=== PATIENT | female | born 1985 | race Caucasian/White ===

== ENCOUNTER → 2021-05-13 12:56 | Outpatient (BNVA) | payer OTHER, SELFPAY | PROVIDERS: PCP Family Medicine; Visit Provider Surgery Vascular Surgery ==

== ENCOUNTER 2021-08-14 08:59 | Outpatient (REF) | payer OTHER, SELFPAY ==
--- NOTE | ~2021-08-14 | XR_ITS ---
EXAMINATION: XR CERVICAL SPINE CLINICAL INFORMATION: Cervicalgia COMPARISON: None TECHNIQUE: 3 views of the cervical spine were obtained. FINDINGS: The craniocervical junction is normal. The dens and atlantodental articulation are intact. The cervical vertebra have normal height. Alignment is normal. No fracture, subluxation or prevertebral soft tissue swelling. The spinal curvature is normal. Minimal disc space narrowing at C5-C6. Otherwise, the disc spaces are normal. The visualized lung apices are normal. XR/XR cervical spine 3V IMPRESSION: * No fracture or subluxation. No significant radiographic findings in the cervical spine. * There is likely minimal disc degeneration at the C5-C6 level, as manifest by minimal height loss of the disc space.
== END 2021-08-14 09:00 | disposition home or self-care (01) ==
LOC: HO.LAB 08:59
PROVIDERS: PCP Family Medicine; Visit Provider Physical Medicine & Rehabilitation
DX: M54.2 Cervicalgia (principal)
CPT/HCPCS: 72040

== ENCOUNTER 2023-09-08 11:22 | Outpatient (REF) | payer OTHER, SELFPAY ==
--- NOTE | ~2023-09-08 | MR_ITS ---
EXAMINATION: MR BRAIN WITHOUT AND WITH CONTRAST CLINICAL INFORMATION: Headaches COMPARISON: None TECHNIQUE: Multiplanar multisequence MR imaging of the brain was obtained without and following the administration of 6 mL Gadavist intravenous contrast. FINDINGS: There is no acute infarct on diffusion-weighted imaging. There is no intracranial hemorrhage on iron-sensitive imaging. No extra-axial collection or mass effect/herniation. Normal parenchymal signal characteristics. No hydrocephalus. The ventricles are normal in morphology and size. No abnormal parenchymal or extra-axial enhancement. The major flow voids at the skull base are preserved. The midline structures are normal. The cerebellar tonsils are positioned at the level of the foramen magnum. The craniocervical junction is normal. Marrow signal is within normal limits. The visualized soft tissues are without significant abnormality. No signal abnormality within the paranasal sinuses or within the mastoid air cells. MR/MR head/brain wo/w con IMPRESSION: Unremarkable contrast enhanced MRI of the brain.
[2023-09-08] MEDS: gadobutroL 7.5 ML VIAL IVPUSH (12:59)
== END 2023-09-08 11:23 | disposition home or self-care (01) ==
LOC: HO.MRI 11:22
PROVIDERS: Visit Provider Otolaryngology
DX: R51.9 Headache, unspecified (principal)
CPT/HCPCS: 70553; A9585

== ENCOUNTER 2024-10-11 08:43 | Outpatient (AMB) | payer OTHER, SELFPAY ==
--- NOTE | 2024-10-11 08:43 | MHC.OFFVIS ---
Intake Visit Reasons: Abdominal pain/ IBS Intake Note: Sabiha presents as a telehealth today for abdominal pains and IBS. CC: Chronic bloating in the stomach, she tends to lean towards constipation and she was diagnosed with IBS from [employer]. Student Outreach Coordinator Required: No Allergies cefaclor [From Ceclor] Adverse Reaction (Unknown, Verified 05/13/21 12:58) Unknown HPI Comments Details: 39 y.o F with PMH of chronic migraines, LBP, IBS. Prev established with [facility] [place] but has not been seen by them since 2016. Main concern is if she is due for repeat colonoscopy due to fam hx. Fam hx: Maternal great grandmother and maternal aunt: CRC. No issues with diarrhea, blood in stool. Has IBS-C predominantly. Triggered easily by change in diet and/or routine. Tried fodmap diet but didnt agree with her gut. Takes at least a few weeks before she can regulate her BMs. When she is not having a flare, doesnt have to strain, stools are soft but formed. Doesnt take fiber supplementation but diet has decent amount fiber. [facility] Medical History (Updated 10/11/24 @ 12:37 by Lorna Braxton MD) Depression Osteoarthritis Surgical History (Updated 10/11/24 @ 08:44 by JAZMINE Corea) Hx of colonoscopy History of esophagogastroduodenoscopy (EGD) Family History (Updated 10/11/24 @ 08:44 by JAZMINE Corea) Family/Other Colon cancer Family/Other Colon cancer Social History Patient Tobacco Use Status: Never used Tobacco Review of Systems Const All systems reviewed & are unremarkable except as noted in HPI and below Physical Exam Vital Signs: Video visit: No acute distress No icterus noted No facial asymmetry Speaking in full sentences Telehealth Telehealth Telehealth [facility]: [facility] Location of provider rendering services: practice address Location of patient: address on file Patient Identification confirmed using: Name, : Yes Telehealth method: video Patient verbally consented to treatment: Yes Patient verbally consented to billing insurance company: Yes Patient informed of any privacy concerns related to visit: Yes Minutes spent on Phone/Video with Pt.: 19 Assessment & Plan Assessment & Plan (1) Irritable bowel syndrome with constipation: Code(s): K58.1 - Irritable bowel syndrome with constipation Category: Medical Plan Overall stable at present. Reviewed consistent fiber intake goal 25-30g per day, increasing hydration and utilizing miralax consistently. We also discussed strategies around dietary modification. Next step would be addition of amitiza anam if burden of global sx high. Plan: - Increase fiber intake - ok to supplement as needed - Adequate hydration - Trial of gluten and dairy avoidance - Pt to maintain food and sx diary and review this in 4 months for ? indication of amitiza - No red flags to warrant endoscopic eval at this time Follow up 4 months Coding Level of Care Code Tele New Pt Level 4 (36677) Diagnoses Irritable bowel syndrome with constipation K58.1
--- OUTSIDE RECORDS SUMMARY | 2024-10-11 09:01 | XMS_ITS | Encounter Summary ---
Author Organization [facility] Address [address] [place] [address] Care Team Providers Care Data Modeling Architect Name Role Phone Yanelis Mast MD Primary Care Provider + Encounter Details Date Type Department Care Team (Latest Contact Info) Description 10/09/2024 Travel Social History Tobacco Use Types Packs/Day Years Used Date Smoking Tobacco: Former Cigarettes Smokeless Tobacco: Former PHQ-2 Answer Date Recorded PHQ-2 Total Score 3 10/09/2024 Physical Activity Answer Date Recorded On average, how many days pe r week do you engage in moderate to strenuous exercise (like a brisk walk)? 4 days 10/21/2023 On average, how many minutes do you exercise per day at this level? 40 min 10/21/2023 Sex and Gender Information Value Date Recorded Sex Assigned at Female 07/06/2023 2:59 PM EST Gender Identity Female 07/06/2023 2:59 PM EST Sexual Orientation Bisexual 07/06/2023 2: 59 PM EST documented as of this encounter Plan of Treatment Upcoming Encounters Date Type Department Care Team (Late st Contact Info) Description 10/24/2024 11:20 AM EDT Procedure visit [facility] [place] [address] [phone] Michelle Wasserman PA [address] [address] 01/11/2025 2:30 PM EDT [facility] [address] [phone] Sabiha Parkinson MD [address] [place] [address] documented as of this encounter Visit Diagnoses Not on filedocumented in this encounter Care Teams Data Modeling Architect Relationship Specialty Start Date End Date Yanelis Mast MD [place] [id number] [address] [address] PCP - General Family Medicine 07/06/23 documented as of this encounter
--- OUTSIDE RECORDS SUMMARY | 2024-10-11 09:01 | XMS_ITS | Encounter Summary ---
Author Organization [facility] Address [address] [place] [id number] Care Team Providers Care Chair And Couch Maker Name Role Phone Yanelis Mast MD Primary Care Provider + Encounter Details Date Type Department Care Team (Late Contact Info) Description 01/24/[address] [facility] [address] [phone] [place] [address] Social History Tobacco Use Types Packs/Day Years Used Date Smoking Tobacco: Former Cigarettes Smokeless Tobacco: Former PHQ-2 Answer Date Recorded PHQ-2 Total Score 0 10/21/2023 Physical Activity Answer Date Recorded On average, [...] Encounters Date Type Department Care Team (Late Contact Info) Description 10/24/2024 11:20 AM EDT Procedure visit [facility] 65 [facility] [address] [place] [phone] Michelle Wasserman PA [address] [address] 01/11/2025 2:30 PM EDT [facility] [address] [phone] Sabiha Parkinson MD [address] [place] [address] documented as of this encounter Visit Diagnoses Not on filedocumented in this encounter Care Teams Chair And Couch Maker Relationship Specialty Start Date End Date Yanelis Mast MD [address] [address] PCP - General Family Medicine 07/06/23 documented as of this encounter
--- OUTSIDE RECORDS SUMMARY | 2024-10-11 09:01 | XMS_ITS | Encounter Summary ---
Author Organization [facility] Address [address] [place] [address] Care Team Providers Care Web Ui Designer Name Role Phone Yanelis Mast MD Primary Care Provider + Reason for Visit * Reason Comments Follow-up Medication Therapy Management Migraine Encounter Details Date Type Department Care Team ([facility] Contact Info) Description 10/09/2024 1:45 PM EDT Office Visit [facility] [address] [phone] Josué Mitchell MD [address] [place] [id number] Chronic migraine without aura, intractable, without status migrainosus (Primary Dx); Intractable migraine with aura without status migrainosus; Menstrual migraine, with intractable migraine, so stated, with status migrainosus Social History Tobacco Use Types Packs/Day Years [...] PM EST documented as of this encounter Last Filed Vital Signs Vital Sign Reading Time Taken Comments Blood Pressure 120/51 10/09/2024 1:57 PM EDT Pulse 60 10/09/2024 1:57 PM EDT Temperature - - Respiratory Rate 12 10/09/2024 1:57 PM EDT Oxygen Saturation 100% 10/09/2024 1:57 PM EDT Inhaled Oxygen Concentration - - Weight - - Height - - Body Mass Index - - documented in this encounter Patient Instructions * Patient Instructions* Inna Caballero MD - 10/09/2024 2:21 PM EDT Images from the original note were not included. Sleep Neurology Dr. Gertrudis Radford in [facility] Dr. Josué Mcconnell at [facility] - help us raise money Race Roster -- Registration, Marketing, Fundraising ([email or web address]) documented in this encounter Progress Notes * Josué Mitchell MD - 10/09/2024 1:53 PM EDT Sabiha Hays is a 39 y.o. female who is being followed for headaches. Headache history per initial visit with Dr. Dionna Hagen and myself on October 21, 2023 Past Medical History: decreasing hearing R>L with tinnitus etiology unclear- maybe loud music, chronic congested nose and soar throat- no allergy workup, gingivitis, low back pain, neck pain (X-ray normal) , prior to IUD metromenorrhagia, depression, anxiety (has both therapist and psychiatrist) Past Surgical History: S/p appendectomy 2009 Past Family History: Mother with hypertension headache thyroid disease and diabetes, father with heart disease and hypertension, sibling (sister) with heart disease and headache and psychiatric diagnosis, aunt or uncle with psychiatric diagnosis, grandparent with cancer diabetes and drug alcohol dep endence Past Social History: See Below Allergies: Ceclor (antibiotic) Headaches began 23 Precipitating Factors: Unknown Headache location: Bilateral holocranial including eyes ears jaw and neck Quality is described as throbbing/pulsating, dull ache, pressure Level of intensity ranges from 3 to 8 Average intensity rated as 5 Level of disability during attack: Slight decrease in function Changed since onset: headaches started as daily but not continuous, during first became daily continuous Without medication, headache is daily continuous, exacerbations last 3 hours to 5 days Headache free time: none Headache frequency: 30 out of which 15 were moderate or severe (divided in to 2 seperate weeks) H/O HARPER attack lasting 3 or more days in a row: Yes Time of day HARPER occurs: exacerbation usually 12 pm-3 pm Time of increased frequency: Menses Season: N/A Premonitory symptoms include none Visual aura described as zigzag lines, tunnel vision lasting about 60 minutes- frequency of once a month or every other month, can occur with mild or severe headache Motor/Sensory aura described as dizziness daily lasting a few minutes, triggered by eye movements, with or without a severe headache - spinning, no diplopia, dysphagia or dysarthria, Migrainous features include nausea-mild, photophobia, phonophobia Autonomic features include none Other associated symptoms include sore/stiff neck, ringing in the ears Allodynia: Pulling at her back ASC Score: 2 Identified triggers include fasting or skipped or delayed meals, caffeine, alcohol, to little fluidintake, 24-48 hours after exercise that causes neck tension or cardio, , stress, weather or temperature changes, sleep disturbance Aggravating factors include walking, exercise, talking Worsened by routine physical activity: Yes Alleviating factors include dark quiet room, lying down, hot or cold compress Triggered by valsalva: no Positional component present with headaches: no Tinnitus: bilateral static constant and randomly pulsatile Age menses began: 11 Worsens with menses: Yes day before and first 2 day of, but not every month Still menstruating/duration: 15 days- 2 days proper menses and 13 days of spotting Sexually active: Yes Form of Control: IUD- Mirena Taking hormone replacement: none Pregnancies: , 1 miscarriage week 2 - headaches worse during and little better afterdelivery Current preventive medication: Propranolol 80 LA for headache and anxiety(09/15/23- improved intensity), Duloxetine 30 mg twice daily [for depression anxiety and chronic pain], pregabalin 75 mg twicedaily, magnesium oxide + Bisglycinate chelate 133 mg daily Current abortive medication: Advil 400 mg- affords 60 % relief. Take 4 day a week (16 a month), Sumatriptan 50 mg- 10-20% benefit- S/E muscle ache Other meds: biotin 2500 mcg daily, fiber daily, probiotics, vitamin D3 2000 units Outpatient Medications Marked as Taking for the 10/21/23 encounter (Office Visit) with Alaina Abbott MD: Biotin 3 MG Tab, Take 1 tablet by mouth daily., Disp: , Rfl: cholecalciferol (CHOLECALCIFEROL) 25 MCG (1000 UT) tablet, Take 4 tablets (4,000 Units total) by mouth daily., Disp: , Rfl: DULoxetine (CYMBALTA) 30 MG capsule, Take 1 capsule (30 mg total) by mouth 2 times a day., Disp: , Rfl: ibuprofen (MOTRIN) 400 MG tablet, Take 1 tablet (400 mg total) by mouth 4 times daily (every 6 hours) as needed for mild pain., Disp: , Rfl: pregabalin (LYRICA) 75 MG capsule, Take 1 capsule (75 mg total) by mouth 2 times a day., Disp: , Rfl: propranolol (INDERAL LA) 80 MG 24 hr capsule, Take 1 capsule (80 mg total) by mouth daily., Disp: ,Rfl: [DISCONTINUED] SUMAtriptan (IMITREX) 50 MG tablet, Take 1 tablet (50 mg total) by mouth as needed.,Disp: , Rfl: Previous Treatments Previous acute treatments OTC: Acetaminophen NSAIDs: Diclofenac, ibuprofen Triptans: Sumatriptan Butalbital: no CGRP: Nurtec (ineffective) Antiemetics: Hydroxyzine Steroids: Prednisone Muscle relaxer: Cyclobenzaprine, baclofen Opioid: no Previous Preventive: Antihypertensives: Propranolol Antidepressants: Venlafaxine (for mood, made HARPER worse), bupropion, duloxetine [for depression, chronic pain and anxiety] Antiepileptics: Gabapentin [patient also states Lyrica], topiramate ( uneffective) CGRP: Aimovig-1 injection , Ajovy- 1 injection , Emgality- 2 seprate injections ( 1st helped, second didn't) Injections: Trigger point injections (3 tries, only one helped) OTC: Magnesium, riboflavin, melatonin, butterbur Adjuvant: Physical therapy [ was helpful but only to a point ], chiropractic therapy Hospitalizations or ED visits for headache: No Headache Evaluation: Imaging: Patient states head [facility] 06/16/2022 no abnormalities found. 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 Hasn't dicussed with therapist, screams during dreams Hydration - 90-108 oz MTOQ -6 MIDAS -22 HIT-6 -65 ESMER-7 - ESMER-7 Total Score: 2 PHQ-9 - PHQ-9 Total Score: 4 Plan on last visit Assessment and Plan Patient has some improvement in her intensity of headaches with Ajovy and better response to abortive medication. However continues with daily headaches with approximately 50% of them still being moderate in intensity. She has taken multiple oral preventives in past. Will benefit from adding Botox to her current therapy to optimize her regimen and provide synergistic effect. Preventive- Continue Ajovy 225 mg sub cu every 28 days. Will add Botox as patient has significant neck pain and headaches triggered by neck stiffness Abortive- keep ubrelvy 100 mg 16 tabs per month so that she can treat majority of her mod to severeheadaches Reviewed non-pharmacologic treatment options. We reviewed the benefits, potential adverse effects, and alternatives of all medications listed above with the patient. Discussed with patient that medications used to treat headache and migraine may be harmful during . Also, some medications used for headache treatment can decrease the efficacy of oral birthcontrol. Reminded patient that she should use extra precautions (such as condoms) to avoid getting while being treated for her headaches. Should she become during the course of her h eadache treatment, she will let our office and her other healthcare providers know. Patient instructed to maintain a headache diary. RTC in 4 months On follow up today: C/C: chronic migraine Had first Botox in 08/01/2024, has noticed a big difference, severity has reduced. Still having mostly daily headaches but only about 8 being moderate to severe, and no longer needing to take naps to recover from her headache, feeling more motivated to continue her daily activities. She has had somewearing off this past week, she also had a recent Ajovy injection and started on Norethindrone. Ubrelvy- working better than before- in about 20mins. Reduces the pain by about 60-70%. Taking 2 doses once in a while no longer having side effect from it. Headache frequency at initial visit:headache is daily severe and continuous, exacerbations last 3 hours to 5 days Headache Characteristics: same Water: 90-140 oz a ton Caffeine: 1/2 cup a day Diet: regular, not skipping meals Exercise: personal companion once a week Sleep: 7 hours, been in a good stretch Mood: better doing somatic yoga Medical Changes Since Last Visit: Currently tapering off Lyrica because it was affecting her memory which has improved significantelysince medication was lowered (75mg every other day) IUD removed using condoms for now, scheduled to start OCP (no estrogen) prescribed by Dr. Chino to finish tapering off lyrica. Vasectomy for scheduled for August. Current preventive medication: Qulipta 60 mg but now 30 mg due to constipation, Duloxetine 30 mg twice daily [for depression anxiety and chronic pain], pregabalin 75 mg twice daily, magnesium oxide +Bisglycinate chelate 133 mg daily Current abortive medication: Ubrelvy 100 mg, Advil 400 mg- affords 60 % relief. Take 4 day a week (16 a month), Sumatriptan 50 mg- 10-20% benefit- S/E muscle ache Other meds: biotin 2500 mcg daily, fiber daily, probiotics, vitamin D3 2000 units control: Mirena Previous Treatments Previous acute treatments OTC: Acetaminophen NSAIDs: Diclofenac, ibuprofen Triptans: Sumatriptan Butalbital: no CGRP: Nurtec (ineffective) Antiemetics: Hydroxyzine Steroids: Prednisone Muscle relaxer: Cyclobenzaprine, baclofen Opioid: no Previous Preventive: Antihypertensives: Propranolol Antidepressants: Venlafaxine (for mood, made HARPER worse), bupropion, duloxetine [for depression, chronic pain and anxiety] Antiepileptics: Gabapentin [patient also states Lyrica], topiramate ( uneffective) CGRP: Aimovig-1 injection , Ajovy- 1 injection , Emgality- 2 seprate injections ( 1st helped, second didn't), Qulipta (caused constipation) Injections: Trigger point injections (3 tries, only one helped) OTC: Magnesium, riboflavin, melatonin, butterbur Adjuvant: Physical therapy [ was helpful but only to a point ], chiropractic therapy Current Outpatient Medications Medication Sig Dispense Refill Biotin 3 MG Tab Take 1 tablet by mouth daily. cholecalciferol (CHOLECALCIFEROL) 25 MCG (1000 UT) tablet Take 4 tablets (4,000 Units total) by mouth daily. DULoxetine (CYMBALTA) 30 MG capsule Take 1 capsule (30 mg total) by mouth 2 times a day. fremanezumab-vfrm (Ajovy) 225 MG/1.5ML injection Inject 1.5 mL (225 mg total) under the skin every 28 days (4 weeks). 1.5 mL 3 ibuprofen (MOTRIN) 400 MG tablet Take 1 tablet (400 mg total) by mouth 4 times daily (every 6 hours) as needed for mild pain. magnesium oxide 400 (240 Mg) MG Tab tablet Take 1 tablet (400 mg total) by mouth daily. Take 2 hours apart from other medications; take with food norethindrone (MICRONOR) 0.35 MG tablet Take 1 tablet (0.35 mg total) by mouth daily. 84 tablet 3 simethicone (MYLICON) 80 MG chewable tablet Chew 1 tablet (80 mg total) 4 times daily (every 6 hours) as needed for flatulence or gastrointestinal distress. ubrogepant (Ubrelvy) 100 MG tablet Take 1 tablet (100 mg total) by mouth once as needed for migraine. May repeat in 2 hours if unresolved. Do not exceed 200 mg in 24 hours. 16 tablet 3 History reviewed. No pertinent past medical history. History reviewed. No pertinent surgical history. Social History Social History Tobacco Use Smoking Status Former Types: Cigarettes Smokeless Tobacco Former Social History Substance and Sexual Activity Drug Use Never Social History Substance and Sexual Activity Alcohol Use None Social History Substance and Sexual Activity Sexual Activity Yes Partners: Male History reviewed. No pertinent family history. Allergies Allergen Reactions Ceclor [Cefaclor] Unknown/Patient and Family Unable to Define Review of Systems General: No weight changes, Denies , fever, chills endorses fatigue Eyes: Denies vision changes endorses eye pain ENT: Denies ear pain, nasal congestion, or sore throa, ear fullness for 3 years Cardiovascular: Denies chest pain or palpitations Respiratory: Denies shortness of breath or cough GI: IBS- constipation : Denies change in urinary habits Dermatologic: Denies rash or lesions Psychiatric: + anxiety and depression - stable and managing Musculoskeletal: reports neck pain 12/12 Neurological: reports headache - 12/12 Medical Exam Vitals: 10/09/24 1357 BP: (!) 120/51 Pulse: 60 Resp: 12 SpO2: 100% General: appears comfortable, no acute distress, no nuchal rigidity, normal posture with no anterior curvature of the shoulders or forward head flexion HEENT: conjunctiva clear, no scleral icterus, no ptosis, no TMJ dysfunction, no tenderness to palpation over the greater occipital, supraorbital, supratrochlear and auriculotemporal nerves Respiratory: respirations unlabored Musculoskeletal: ++ myalgia, trigger points and tenderness to palpation over the trapezius and cervical spinal muscles Neurological Exam Mental Status: The patient was fully oriented and demonstrated normal speech and language. The affect was normal Cranial Nerves: EOMS: normal. No facial asymmetry. Shoulder shrug: normal bilaterally Motor Exam: Able to move all extremities against gravity. Gait: Normal gait and station ? Impression and Recommendations: The differential diagnoses include: 1. Chronic migraine without aura, intractable, without status migrainosus fremanezumab-vfrm (Ajovy)225 MG/1.5ML injection 2. Intractable migraine with aura without status migrainosus ubrogepant (Ubrelvy) 100 MG tablet fremanezumab-vfrm (Ajovy) 225 MG/1.5ML injection DISCONTINUED: fremanezumab-vfrm (Ajovy) 225 MG/1.5ML injection 3. Menstrual migraine, with intractable migraine, so stated, with status migrainosus Assessment and Plan Patient has some improvement in her intensity of headaches with Ajovy and better response to abortive medication. Since starting Botox she has had significant improvement (more than 50%) in severity-only having about 8 moderate to severe headaches per month, with improvement in disability and mood. She has taken multiple oral preventives in past. Will continue Botox and Ajovy.She is having sensitivity reaction to Ajovy autoinjector, will change to syringe injection and recommend to continue benadryl. Preventive- Continue Ajovy 225 mg subcutaneous injection every 28 days using syringe Continue Botox q 12 weeks Patient with reduction in moderate to severe days, improvement in mood, improvement in disability since starting Botox. Abortive- keep ubrelvy 100 mg 16 tabs per month so that she can treat majority of her mod to severeheadaches Reviewed non-pharmacologic treatment options. We reviewed the benefits, potential adverse effects, and alternatives of all medications listed above with the patient. Discussed with patient that medications used to treat headache and migraine may be harmful during . Also, some medications used for headache treatment can decrease the efficacy of oral birthcontrol. Reminded patient that she should use extra precautions (such as condoms) to avoid getting while being treated for her headaches. Should she become during the course of her h eadache treatment, she will let our office and her other healthcare providers know. Patient instructed to maintain a headache diary with particular attention to her headaches and menses RTC in 4 months Patient's assessment and plan was discussed with Dr.Mehla Inna Marcelino MD Headache Fellow I interviewed and examined the patient and agree with the history, assessment and plan. Josué Mitchell MD Total time of 35 minutes was spent for today's visit Future Appointments Date Time Provider Department Center 10/24/2024 11:20 AM QING Brady [facility] None 01/11/2025 2:30 PM Sabiha Parkinson MD OUTSIDE SALES REPRESENTATIVE [facility] None documented in this encounter Plan of Treatment Upcoming Encounters Date Type Department Care Team (Late st Contact Info) Description 10/24/2024 11:20 AM EDT Procedure visit [facility] [place] [address] [phone] Michelle Wasserman PA [address] [phone] 01/11/2025 2:30 PM EDT Telemedicine Gynecologic Specialties at [facility] [address] [phone] Sabiha Parkinson MD [address] [place] [phone] documented as of this encounter Visit Diagnoses Diagnosis Chronic migraine without aura, intractable, without status migrainosus- Primary Intractable migraine with aura without status migrainosus Menstrual migraine, with intractable migraine, so stated, with status migrainosus documented in this encounter Care Teams Web Ui Designer Relationship Specialty Start Date End Date Yanelis Mast MD [place] [id number] [address] [id number] PCP - General Family Medicine 07/06/23 documented as of this encounter
--- OUTSIDE RECORDS SUMMARY | 2024-10-11 09:01 | XMS_ITS | Data Portability ---
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 CURRENTLY: Nov 25 2022: She has had significant reduction in the severity of migraine (though not the frequency of daily headaches) in the context of an 8 day trial of Nurtec and trigger point injections for low back from her histologist. This has also been a side effect of insomnia, GI upset and sensation of intense heartbeat or high blood pressure which she attributes to cortisone injection. I am not certain, particularly the GI upset. She is planning her last set of trigger point injections and cortisone injection in 2 days. She has been off of Nurtec for about 1 week at this point. I have asked her to remain off of it and have given her another 8-day trial to resume in 1 to 2 weeks after her trigger point and steroid injections so that we can determine if she is having side effect from the Nurtec before asking insurance for prior authorization. Review of October 01 2022 consultation discussion /rationale for choosing CGRP inhibitor trial Daily migraines are currently poorly controlled. She has previously tried topiramate from her PCP and had a side effect of flulike symptoms with GI symptoms and fatigue. In March 2022, she had trial of venlafaxine for her depression and in the context, headaches worsened with throbbing head pain and increased anxiety. She has baseline low blood pressure usually about 100/70 and so therefore she does not wish to try an antihypertensive for migraine prevention. I have deferred the myofascial examination as she has known cervical muscle pain and has previously been offered trigger point injections by her histologist. We discussed the possibility of Botox in the future -and if she wishes to move in this direction we will set up a visit for myofascial examination. As there are less injections involved, she is interested in a trial of CGRP inhibitor for migraine prevention. She has a history of irritable bowel syndrome and Aimovig can be a bit more constipating, we opted for trial of Ajovy. She has self-administered injectable medications in the past and wishes to take a sample home with her. We will plan to follow-up in 3 weeks to see how she does. We may consider taking over her triptan medications in the future to see if she has improved benefit for her more frequent daily migraines. Medications per patient Duloxetine 30 mg twice daily Celebrex 100 mg twice daily Imitrex 25 mg as needed Magnesium Probiotics Vitamin D 4000 international units Hydroxyzine 25 mg as needed Lorazepam 0.5 mg as needed PLAN: Sabiha Hays November 25, 2022 MIGRAINE PREVENTION You have had side effect of insomnia, bloating and GI discomfort and increased heart rate which is either from cortisone injection or from Nurtec which has occurred for 1 day in the context of both. You are planning 1 more set of injections in 2 days. I am giving you another 8-day trial of Nurtec, please hold off on resuming the trial until at least a week after your injections or until any potential side effects from the injections it is resolved, then, when you are not trying any new medications or injections, please repeat the Nurtec 8 day trial and monitor for side effect and benefit Nurtec, 1 tablet every 48 hours for 8 days. FOR THE NECK PAIN ASSOCIATED WITH MIGRAINES You have had benefit from trigger point injections with your histologist in combination with Nurtec and you are planning 1 more set of injections I recommend that you continue home exercise program learned from physical therapy about 9 months ago BREAKTHROUGH MIGRAINE Continue sumatriptan 25 mg as needed at the onset of migraines with visual aura. At a future visit, we can consider taking over this prescription and adjusting the dose to see if it is effective for the more frequent severe headaches Follow-up in 1 month to see how you do with the repeat 8-day trial of Nurtec for migraine prevention Discussed with Dr. Bowman, impression and plan developed with him CC Dr Spencer Esteban, [facility] [place] [id number] Not available 12/01/2022 08:52:28 12/16/2022 12/16/2022 IMPRESSION: Lillie y migraine headaches with presumed cervical myofascial features with less frequent approximately 5 per year migraines with visual aura. CURRENTLY: December 16, 2022: She continues to have daily headaches that ramped up by late morning. There is less frequent migraine with aura about 2 times per month. She has had a second trial of Nurtec for 8 days at this time, no side effect but also no benefit. She is now wondering if the benefit that she had with the first trial was actually because of the trigger point injections she had from her histologist at the time. She has active trigger points on examination at the insertion of the cervical paraspinals as well as laterally toward the occipital groove and posterior auricular region. There is also an active trigger point at the right sternocleidomastoid radiating posteriorly toward the occiput and areas of tenderness at the occipital region at the back of the head. We discussed the possibility of starting with physical therapy for myofascial release. She is actually starting physical therapy for low back pain this afternoon. I believe this should be covered by insurance as it is a separate issue but would also be difficult for her to make it to physical therapy for both low back pain and for myofascial release but she would like a referral to begin making the arrangements to start the physical therapy for myofascial release after she completes her physical therapy for low back pain. We also discussed the possibility of setting up a follow-up with Dr. Bowman for further discussion of potential Botox as she will likely be in physical therapy at that time and has responded to trigger point injections from her histologist (but it did not last). She prefers to try medication again reflecting that when she first tried Ajovy, that the injection may not have gone in correctly. We discussed that there is a about a 20% possibility that someone might respond to a different CGRP inhibitor. We discussed the possibility of a trial of Emgality monthly autoinjector (she has baseline constipation and therefore we have not considered Aimovig) versus a trial of Qulipta at 30 mg and possibly 60 mg. She would like to return for trial of Emgality. REVIEW of Nov 25 2022 initial Nurtec trial: She has had significant reduction in the severity of migraine (though not the frequency of daily headaches) in the context of an 8 day trial of Nurtec and trigger point injections for low back from her histologist. This has also been a side effect of insomnia, GI upset and sensation of intense heartbeat or high blood pressure which she attributes to cortisone injection. I am not certain, particularly the GI upset. She is planning her last set of trigger point injections and cortisone injection in 2 days. She has been off of Nurtec for about 1 week at this point. I have asked her to remain off of it and have given her another 8-day trial to resume in 1 to 2 weeks after her trigger point and steroid injections so that we can determine if she is having side effect from the Nurtec before asking insurance for prior authorization. Review of October 01 2022 consultation discussion /rationale for choosing CGRP inhibitor trial Daily migraines are currently poorly controlled. She has previously tried topiramate from her PCP and had a side effect of flulike symptoms with GI symptoms and fatigue. In March 2022, she had trial of venlafaxine for her depression and in the context, headaches worsened with throbbing head pain and increased anxiety. She has baseline low blood pressure usually about 100/70 and so therefore she does not wish to try an antihypertensive for migraine prevention. I have deferred the myofascial examination as she has known cervical muscle pain and has previously been offered trigger point injections by her histologist. We discussed the possibility of Botox in the future -and if she wishes to move in this direction we will set up a visit for myofascial examination. As there are less injections involved, she is interested in a trial of CGRP inhibitor for migraine prevention. She has a history of irritable bowel syndrome and Aimovig can be a bit more constipating, we opted for trial of Ajovy. She has self-administered injectable medications in the past and wishes to take a sample home with her. We will plan to follow-up in 3 weeks to see how she does. We may consider taking over her triptan medications in the future to see if she has improved benefit for her more frequent daily migraines. Medications per patient Duloxetine 30 mg twice daily Celebrex 100 mg twice daily Imitrex 25 mg as needed Magnesium Probiotics Vitamin D 4000 international units Hydroxyzine 25 mg as needed Lorazepam 0.5 mg as needed PLAN: Sabiha Lis December 16, 2022 MIGRAINE PREVENTION We can plan an add-on appointment for trial of Emgality. I recommend in office trial given the questionable delivery of Ajovy previously. We can plan this as an add on tomorrow at 8 or at 4 PM. These are the instructions and side effects that we discussed Emgality subcutaneous injection, every month: FIRST MONTH: 120 mg injection pens, TWO pens twice in succession, in abdomen, thigh, upper arm or buttocks (use to separate injection sites) EVERY MONTH AFTER: 120 mg injection pen, ONE pen, in abdomen, thigh, upper arm or buttocks. Possible side effects include constipation, nausea, muscle pain, worsening mood, each occurring in about 5-10% of patients. Injection site reactions occur uncommonly, with redness, swelling or pain at the site that usually goes away in a few days. No dangerous injection site reactions have occurred. FOR THE NECK PAIN ASSOCIATED WITH MIGRAINES You have had benefit from trigger point injections with your histologist in combination with Nurtec, and a second trial without concurrent Nurtec that was less beneficial. You have previously had physical therapy about 1 year ago.I recommend that you continue home exercise program learned from physical therapy about 1 months ago. I also offered physical therapy with a physical therapist who specializes in myofascial release for migraine. You will be starting physical therapy later today for your low back pain and it would be difficult for you to make multiple appointments even if insurance would cover it (as they should as these are 2 separate issues). We agreed on the referral process now with the plan to schedule your first appointment in ~ 2 months when you might be completing physical therapy for your low back [address] [place] [id number] Ph. , You will need to call to set up the first appointment BREAKTHROUGH MIGRAINE Continue sumatriptan 25 mg as needed at the onset of migraines with visual aura. At a future visit, we can consider taking over this prescription and adjusting the dose to see if it is effective for the more frequent severe headaches Follow-up tomorrow as discussed above for Emgality trial only and then 3 weeks after that to see how it goes CC Dr Spencer Esteban, [facility] [place] [id number] Not available 12/16/2022 20:38:47 12/17/2022 12/17/2022 IMPRESSION: Daily migraine headaches with presumed cervical myofascial features with less frequent approximately 5 per year migraines with visual aura. CURRENTLY: December 17, 2022: Seen today for Emgality trial with office teaching. We went over the instructions and I did one of the 2 loading dose autoinjectors and she did the other. She tolerated this well without any difficulty but she notes that it is a bit more painful than when she was giving herself injections for artificial insemination. We discussed the difference between the Ajovy autoinjector and the Emgality autoinjector and she believes that the difficulty that she had with it was the second half popping out and not receiving the full dose when she had the previous Ajovy trial. We will plan a 3-week follow-up as previously discussed yesterday, December 16, 2022, details below. REVIEW: December 16, 2022: She continues to have daily headaches that ramped up by late morning. There is less frequent migraine with aura about 2 times per month. She has had a second trial of Nurtec for 8 days at this time, no side effect but also no benefit. She is now wondering if the benefit that she had with the first trial was actually because of the trigger point injections she had from her histologist at the time. She has active trigger points on examination at the insertion of the cervical paraspinals as well as laterally toward the occipital groove and posterior auricular region. There is also an active trigger point at the right sternocleidomastoid radiating posteriorly toward the occiput and areas of tenderness at the occipital region at the back of the head. We discussed the possibility of starting with physical therapy for myofascial release. She is actually starting physical therapy for low back pain this afternoon. I believe this should be covered by insurance as it is a separate issue but would also be difficult for her to make it to physical therapy for both low back pain and for myofascial release but she would like a referral to begin making the arrangements to start the physical therapy for myofascial release after she completes her physical therapy for low back pain. We also discussed the possibility of setting up a follow-up with Dr. Bowman for further discussion of potential Botox as she will likely be in physical therapy at that time and has responded to trigger point injections from her histologist (but it did not last). She prefers to try medication again reflecting that when she first tried Ajovy, that the injection may not have gone in correctly. We discussed that there is a about a 20% possibility that someone might respond to a different CGRP inhibitor. We discussed the possibility of a trial of Emgality monthly autoinjector (she has baseline constipation and therefore we have not considered Aimovig) versus a trial of Qulipta at 30 mg and possibly 60 mg. She would like to return for trial of Emgality. Review of October 01 2022 consultation discussion /rationale for choosing CGRP inhibitor trial Daily migraines are currently poorly controlled. She has previously tried topiramate from her PCP and had a side effect of flulike symptoms with GI symptoms and fatigue. In March 2022, she had trial of venlafaxine for her depression and in the context, headaches worsened with throbbing head pain and increased anxiety. She has baseline low blood pressure usually about 100/70 and so therefore she does not wish to try an antihypertensive for migraine prevention. I have deferred the myofascial examination as she has known cervical muscle pain and has previously been offered trigger point injections by her histologist. We discussed the possibility of Botox in the future -and if she wishes to move in this direction we will set up a visit for myofascial examination. As there are less injections involved, she is interested in a trial of CGRP inhibitor for migraine prevention. She has a history of irritable bowel syndrome and Aimovig can be a bit more constipating, we opted for trial of Ajovy. She has self-administered injectable medications in the past and wishes to take a sample home with her. We will plan to follow-up in 3 weeks to see how she does. We may consider taking over her triptan medications in the future to see if she has improved benefit for her more frequent daily migraines. Medications per patient Duloxetine 30 mg twice daily Celebrex 100 mg twice daily Imitrex 25 mg as needed Magnesium Probiotics Vitamin D 4000 international units Hydroxyzine 25 mg as needed Lorazepam 0.5 mg as needed PLAN: Sabiha Hays December 17, 2022 MIGRAINE PREVENTION Emgality subcutaneous injection, every month: FIRST MONTH: 120 mg injection pens, TWO pens twice in succession, in abdomen, thigh, upper arm or buttocks (use to separate injection sites) EVERY MONTH AFTER: 120 mg injection pen, ONE pen, in abdomen, thigh, upper arm or buttocks. Possible side effects include constipation, nausea, muscle pain, worsening mood, each occurring in about 5-10% of patients. Injection site reactions occur uncommonly, with redness, swelling or pain at the site that usually goes away in a few days. No dangerous injection site reactions have occurred. We have started the Emgality loading dose today, December 17, 2022 FOR THE NECK PAIN ASSOCIATED WITH MIGRAINES You have had benefit from trigger point injections with your histologist in combination with Nurtec, and a second trial without concurrent Nurtec that was less beneficial. You have previously had physical therapy about 1 year ago.I recommend that you continue home exercise program learned from physical therapy about 1 months ago. I also offered physical therapy with a physical therapist who specializes in myofascial release for migraine. You are starting physical therapy for your low back pain and it would be difficult for you to make multiple appointments even if insurance would cover it (as they should as these are 2 separate issues). We agreed on the referral process now with the plan to schedule your first appointment in ~ 2 months when you might be completing physical therapy for your low back Shan[facility] [address] [address] [place] [address] Ph. , You will need to call to set up the first appointment BREAKTHROUGH MIGRAINE Continue sumatriptan 25 mg as needed at the onset of migraines with visual aura. At a future visit, we can consider taking over this prescription and adjusting the dose to see if it is effective for the more frequent severe headaches Follow-up in 3 weeks to see how the trial of Emgality goes. CC Dr Spencer Esteban, [facility] [place] [phone] Not available 12/17/2022 17:12:11 01/06/2023 01/06/2023 IMPRESSION: Lillie cook migraine headaches with presumed cervical myofascial features with less frequent approximately 5 per year migraines with visual aura. CURRENTLY: January 06, 2023: She has had benefit from Emgality without side effect. She wishes to continue. She has not had any breakthrough migraine with aura. She has had some headache associated with noise triggers and stressors she feels is more typical of the musculoskeletal component. She has tried sumatriptan for these in the past but it has not helped (25 mg dose.) She has previously had trial of Ajovy with insufficient benefit and trial of Nurtec with insufficient benefit. We will request prior authorization for emgality given her improvement with migraine with aura.. Additionally, she has sumatriptan/Imitrex 25 mg from her primary care provider which has helped with aura in the past although it has not helped with the rest of her migraines. I offered to take it over and increase the dose. We will start with 50 mg as she can take half tablets if 25 mg continues to be sufficient. I have also told her she may double the dose with a maximum of 200 mg per 24 hours. She will consider a retrial for some of the headaches without aura to see if there is any benefit, possibly at higher dose than previously. She will contact me if she finds that she requires 100 mg doses Review of October 01 2022 consultation discussion /rationale for choosing CGRP inhibitor trial Daily migraines are currently poorly controlled. She has previously tried topiramate from her PCP and had a side effect of flulike symptoms with GI symptoms and fatigue. In March 2022, she had trial of venlafaxine for her depression and in the context, headaches worsened with throbbing head pain and increased anxiety. She has baseline low blood pressure usually about 100/70 and so therefore she does not wish to try an antihypertensive for migraine prevention. I have deferred the myofascial examination as she has known cervical muscle pain and has previously been offered trigger point injections by her histologist. We discussed the possibility of Botox in the future -and if she wishes to move in this direction we will set up a visit for myofascial examination. As there are less injections involved, she is interested in a trial of CGRP inhibitor for migraine prevention. She has a history of irritable bowel syndrome and Aimovig can be a bit more constipating, we opted for trial of Ajovy. She has self-administered injectable medications in the past and wishes to take a sample home with her. We will plan to follow-up in 3 weeks to see how she does. We may consider taking over her triptan medications in the future to see if she has improved benefit for her more frequent daily migraines. Medications per patient Duloxetine 30 mg twice daily Celebrex 100 mg twice daily Imitrex 25 mg as needed Magnesium Probiotics Vitamin D 4000 international units Hydroxyzine 25 mg as needed Lorazepam 0.5 mg as needed PLAN: Sabiha Hays January 06, 2023 BREAKTHROUGH MIGRAINE I am taking over sumatriptan and from your primary care provider and increasing the dose from 25 mg to 50 mg however you may still continue to use half a tablet (25mg) has been sufficient for stopping aura. You may try the higher dose to see if you have any benefit with the headaches without aura. (If you tolerate 50 mg without side effect, you may double up at the first dose to see if this is sufficient but if you do so, please contact me as you will run out of medication) Sumatriptan (brand-name Imitrex) 50 mg tablets, 0.5 to 1.0 tablet by mouth at the beginning of headache headache, may repeat once after one hour, maximum 200 mg/day, 600mg/week. The medication is most useful when taken at the beginning of the headache, as opposed to after the headache has already gotten intense or been going on for a while. Start with one half tablet as an initial dose. If this is not enough but there are no side effects, the next bad headache can be treated initially with a full tablet. You can go up to 1.5 tablets or 2 tablets as the initial dose on subsequent headaches as needed and as tolerated. If sumatriptan and helps partially but not totally, you may combine sumatriptan with 3 tablets of the [id number] medication naproxen (brand-name Aleve). Take the medication with a full glass of water. Do not take naproxen at the same time as ibuprofen/Motrin. Side effects to sumatriptan may include a brief period of tightness or pain in jaw or chest. This is not dangerous, but may be uncomfortable. Side effects to naproxen may include stomach irritation. If side effects are mild, you may continue taking the medication if it helps. If side effects are not mild, stop taking the medication. MIGRAINE PREVENTION CONTINUE Emgality subcutaneous injection, every month: FIRST MONTH: 120 mg injection pens, TWO pens twice in succession, in abdomen, thigh, upper arm or buttocks (use to separate injection sites) was done in the office on December 17, 2022 EVERY MONTH AFTER: 120 mg injection pen, ONE pen, in abdomen, thigh, upper arm or buttocks. Next injection due Wednesday, January 16, 2023 If the emgality authorization is still pending, or if it is in the mail, please stop by for a sample 1 single 120 mg/mL emgality on 01/14/23 as our office is closed on Fridays Possible side effects include constipation, nausea, muscle pain, worsening mood, each occurring in about 5-10% of patients. Injection site reactions occur uncommonly, with redness, swelling or pain at the site that usually goes away in a few days. No dangerous injection site reactions have occurred. We have started the Emgality loading dose today, December 17, 2022 I have sent in a prescription to your pharmacy and we will ask insurance for prior authorization. FOR THE NECK PAIN ASSOCIATED WITH MIGRAINES You have had benefit from trigger point injections with your histologist in combination with Nurtec, and a second trial without concurrent Nurtec that was less beneficial. You have previously had physical therapy about 1 year ago. I recommend that you continue home exercise program learned from physical therapy about 1 months ago. I also offered physical therapy with a physical therapist who specializes in myofascial release for migraine. You are starting physical therapy for your low back pain and it would be difficult for you to make multiple appointments even if insurance would cover it (as they should as these are 2 separate issues). We agreed on the referral process now with the plan to schedule your first appointment in ~ February 2023 when you might be completing physical therapy for your low back Shanika Aldana [facility] [address] [facility], [place] [address] Ph. , You will need to call to set up the first appointment Follow-up in 1 month to review the emgality prior authorization process and to see how you do with trial of increased sumatriptan from 25 mg to 50 mg which I took over from PCP today CC Dr Spencer Esteban, [facility] [place] [id number] Not available 01/06/2023 14:07:10 01/14/2023 01/14/2023 IMPRESSION: Daily migraine headaches without aura with presumed cervical myofascial features with less frequent approximately 5 per year migraines with visual aura for at least 10 years. -- Excellent response to Emgality loading dose on December 17, 2022 with reduction of daily migraine that she has had for the last 10 years from severity of 7/10 to severity of 3-4/10 0 interval migraines with aura. CURRENTLY: January 14, 2023: She has had reduction of daily migraine severity from 7 over 10-3 or 4/10 after Emgality loading dose on December 17, 2022. Unfortunately this was denied by insurance. Her response argues that the daily headaches are primarily migrainous together with additional history of lack of response to headache after using muscle relaxers. Historically, the headaches did not respond to sumatriptan 25 mg and only the aura responded. At her last visit I suggested an increase and suggested that she try it during a headache without aura to see if she has a response: She has tried 25 mg at the onset of migraine with a repeat in 1 hour and had reduction of severity of migraine without side effect. This also argues that the daily headache is migrainous without aura. She has previously tried topiramate from her primary care provider with flulike symptoms followed by venlafaxine with exacerbation of migraine and increased headache with aura and worsening anxiety. As she has had more than 15 migraines per month for ~10 years reduction of severity on Emgality, and she has had intolerance of 2 prior standard migraine prophylactic treatments. I expect that this would be covered on appeal. However, it does appear that Ajovy or Aimovig is preferred. She had a prior trial of Ajovy with insufficient benefit although retrospectively, she thinks that may be she did not receive the full dose when she did the injection at home. We will go ahead with Aimovig 70 mg/mL trial and see how she responds to that before submitting it to her insurance for authorization or appealing the Emgality decision. She understands that constipation could be a potential issue given her underlying irritable bowel syndrome. I have suggested that if she is constipated for more than 24 hours she begin an [id number] laxative. We will keep her previously planned appointment on February 11 to make a decision about the Aimovig trial. Review of October 01 2022 consultation discussion /rationale for choosing CGRP inhibitor trial Daily migraines are currently poorly controlled. She has previously tried topiramate from her PCP and had a side effect of flulike symptoms with GI symptoms and fatigue. In March 2022, she had trial of venlafaxine for her depression and in the context, headaches worsened with throbbing head pain and increased anxiety. She has baseline low blood pressure usually about 100/70 and so therefore she does not wish to try an antihypertensive for migraine prevention. I have deferred the myofascial examination as she has known cervical muscle pain and has previously been offered trigger point injections by her histologist. We discussed the possibility of Botox in the future -and if she wishes to move in this direction we will set up a visit for myofascial examination. As there are less injections involved, she is interested in a trial of CGRP inhibitor for migraine prevention. She has a history of irritable bowel syndrome and Aimovig can be a bit more constipating, we opted for trial of Ajovy. She has self-administered injectable medications in the past and wishes to take a sample home with her. We will plan to follow-up in 3 weeks to see how she does. We may consider taking over her triptan medications in the future to see if she has improved benefit for her more frequent daily migraines. Medications per patient From [facility]: Imitrex 50 mg ? ? ? to 1 tab as needed -taken over from primary care Emgality prescribed, disallowed by insurance -changes to prescription on hold Duloxetine 30 mg twice daily Celebrex 100 mg twice daily Magnesium Probiotics Vitamin D 4000 international units Hydroxyzine 25 mg as needed Lorazepam 0.5 mg as needed PLAN: Sabiha Hays January 15, 2023 MIGRAINE PREVENTION HOLD Emgality subcutaneous injection, every month: loading dose December 17, 2022 office next 120 mg mL due January 16 -disallowed by insurance as described above. We may consider future appeal as you have had significant reduction in the severity of daily migraine without aura. However, we will try Aimovig 70 mg/mL since this appears to be preferred by your insurance. I am giving you a sample to bring home. Do you previously had some difficulty with the Ajovy autoinjector, the Aimovig autoinjector is a bit more straightforward and so I do not anticipate any difficulty for you to take this on Wednesday when you are due for the next injection. Aimovig (generic name erenumab) 70 mg/mL subcutaneous autoinjector, one injection (1 mL, 70 mg) beneath the skin (``subcutaneously?) and outer upper arm, top of thigh, or abdomen. Side effects may include injection site reaction, constipation, or cramps. Postmarketing studies suggest that depression is an unusual but possible side effect. If side effect is mild, stay on the medication for a few cycles to see if you get used to this medication. If side effects are not mild, or you do not get used to the medication, stop the medication. We are starting at the lower 70 mg dose as there is no definitive data that the higher dose helps more although there is a trend in that direction. Data suggest that benefit increases most substantially along the first 3 months after starting. Reevaluation for consideration of increased dose is best on after 3 months, therefore. BREAKTHROUGH MIGRAINE Sumatriptan from your primary care at your visit last week January 06, 2023 and increased from 25 mg to 50 mg CONTINUE: Sumatriptan (brand-name Imitrex) 50 mg tablets, 0.5 to 1.0 tablet by mouth at the beginning of headache headache, may repeat once after one hour, maximum 200 mg/day, 600mg/week. The medication is most useful when taken at the beginning of the headache, as opposed to after the headache has already gotten intense or been going on for a while. Start with one half tablet as an initial dose. If this is not enough but there are no side effects, the next bad headache can be treated initially with a full tablet. You can go up to 1.5 tablets or 2 tablets as the initial dose on subsequent headaches as needed and as tolerated. If sumatriptan and helps partially but not totally, you may combine sumatriptan with 3 tablets of the oznr-fba-cucrezl medication naproxen (brand-name Aleve). Take the medication with a full glass of water. Do not take naproxen at the same time as ibuprofen/Motrin. Side effects to sumatriptan may include a brief period of tightness or pain in jaw or chest. This is not dangerous, but may be uncomfortable. Side effects to naproxen may include stomach irritation. If side effects are mild, you may continue taking the medication if it helps. If side effects are not mild, stop taking the medication. FOR THE NECK PAIN ASSOCIATED WITH MIGRAINES You have had benefit from trigger point injections with your histologist in combination with Nurtec, and a second trial without concurrent Nurtec that was less beneficial. You have previously had physical therapy about 1 year ago. I recommend that you continue home exercise program learned from physical therapy about 1 months ago. I also offered physical therapy with a physical therapist who specializes in myofascial release for migraine. You are starting physical therapy for your low back pain and it would be difficult for you to make multiple appointments even if insurance would cover it (as they should as these are 2 separate issues). We agreed on the referral process now with the plan to schedule your first appointment in ~ February 2023 when you might be completing physical therapy for your low back Shanika Aldana PT [address] [place] [address] Ph. , You will need to call to set up the first appointment Follow-up in 1 month February 11 as previously planned We will see how you do with the Aimovig trial. CC Dr Spencer Esteban, [facility] [place] [phone] Not available 02/09/2023 08:27:36 Plan of Treatment Reminders Order Date Submit Date Provider Last Modified By Organization Details Last Modified Time Details Appointments None recorded. Lab None recorded. Referral neurologic physical therapist referral - For myofascial release. Active trigger points at insertion of paraspinal, occipital groove, post auricular region. R scm radiates toward occiput. Also separate pain to touch b/l occipital region. (Has responded to ttp injections from physiatry. Would like to start after upcoming PT for low back 2022 023 [email or web address] 1 Shanika Aldana PT, [address] [place], [id number], 14:42:06 Procedures None recorded. Surgeries None recorded. Imaging None recorded. Medication Orders Emgality Pen 120 mg/mL subcutaneou s pen injector 2022 023 [id number], [address], [place], [id number], 09:27:09 sumatriptan 50 mg tablet 2022 023 PETER [id number], [address], [place], [id number], 09:33:33 Patient TargetsNo targets recorded. Patient Instructions Encounter Date Encounter Id Patient Instructions Last Modified By Organization Details Last Modified Time 11/25/2022 [id number] PREVIOUS MEDICAT IONS October 05 2022 Ajovy trial -no benefit in the first 23 days of the trial. No side effect (there is a possibility of inadequate delivery as someone came to the door during the delivery, did not hear the second click but no issues with seeing liquid on her skin) PREVIOUS DISCUSSIONS October 28, 2022: She is 23 days into a trial of Ajovy that may not have delivered entirely correctly but she believes that it did not. She has not had any benefit. She is also not had any side effect. She has a clear musculoskeletal component to her migraines and has discussed trigger point injections with her histologist although the focus has been primarily on low back pain. (She is about to start physical therapy for this). She has questions about Botox injections. This is certainly a direction we could take this although we would want to do a myofascial exam first to confirm active trigger points. She is concerned that it could take up to 9 months before achieving an adequate dose on Botox to relieve her symptoms. We could also consider an alternative CGRP inhibitor. She would like to go ahead with a trial of Nurtec as this has been helpful for her sister and she often responds to medications in a similar way (though her sister had tends to have more classic migraines which she also occasionally has about 5 times per year). She also has a follow-up with her histologist and will touch base with him about the possibility of trigger point injections for the migraine which had previously been deferred. I assured her that we can still consider Botox in the future she wishes -although we would want to confirm active trigger points on examination which we have avoided thus far so that we do not trigger a multi day migraine. BILLING: Discussion across issues of diagnoses and management and same day associated chart review and management greater than 50% greater than 45 minutes rosa m Not available 12/01/2022 08:51:51 12/16/2022 [id number] PREVIOUS MEDICAT IONS December 2019 repeat Nurtec trial: No clear benefit, no side effect November 2022 8-day Nurtec trial, excellent benefit (also concurrent trigger point injections), possible GI side effect and insomnia may be due to concurrent steroid injection. October 05 2022 Ajovy trial -no benefit in the first 23 days of the trial. No side effect (there is a possibility of inadequate delivery as someone came to the door during the delivery, did not hear the second click but no issues with seeing liquid on her skin) PREVIOUS DISCUSSIONS October 28, 2022: She is 23 days into a trial of Ajovy that may not have delivered entirely correctly but she believes that it did not. She has not had any benefit. She is also not had any side effect. She has a clear musculoskeletal component to her migraines and has discussed trigger point injections with her histologist although the focus has been primarily on low back pain. (She is about to start physical therapy for this). She has questions about Botox injections. This is certainly a direction we could take this although we would want to do a myofascial exam first to confirm active trigger points. She is concerned that it could take up to 9 months before achieving an adequate dose on Botox to relieve her symptoms. We could also consider an alternative CGRP inhibitor. She would like to go ahead with a trial of Nurtec as this has been helpful for her sister and she often responds to medications in a similar way (though her sister had tends to have more classic migraines which she also occasionally has about 5 times per year). She also has a follow-up with her histologist and will touch base with him about the possibility of trigger point injections for the migraine which had previously been deferred. I assured her that we can still consider Botox in the future she wishes -although we would want to confirm active trigger points on examination which we have avoided thus far so that we do not trigger a multi day migraine. BILLING: Discussion across issues of diagnoses and management and same day associated chart review and management greater than 50% greater than 45 minutes rosa m Not available 12/16/2022 20:29:27 12/17/2022 [id number] PREVIOUS MEDICAT IONS December 2019 repeat Nurtec trial: No clear benefit, no side effect November 2022 8-day Nurtec trial, excellent benefit (also concurrent trigger point injections), possible GI side effect and insomnia may be due to concurrent steroid injection. October 05 2022 Ajovy trial -no benefit in the first 23 days of the trial. No side effect (there is a possibility of inadequate delivery as someone came to the door during the delivery, did not hear the second click but no issues with seeing liquid on her skin) PREVIOUS DISCUSSIONS Nov 25 2022 initial Nurtec trial: She has had significant reduction in the severity of migraine (though not the frequency of daily headaches) in the context of an 8 day trial of Nurtec and trigger point injections for low back from her histologist. This has also been a side effect of insomnia, GI upset and sensation of intense heartbeat or high blood pressure which she attributes to cortisone injection. I am not certain, particularly the GI upset. She is planning her last set of trigger point injections and cortisone injection in 2 days. She has been off of Nurtec for about 1 week at this point. I have asked her to remain off of it and have given her another 8-day trial to resume in 1 to 2 weeks after her trigger point and steroid injections so that we can determine if she is having side effect from the Nurtec before asking insurance for prior authorization. October 28, 2022: She is 23 days into a trial of Ajovy that may not have delivered entirely correctly but she believes that it did not. She has not had any benefit. She is also not had any side effect. She has a clear musculoskeletal component to her migraines and has discussed trigger point injections with her histologist although the focus has been primarily on low back pain. (She is about to start physical therapy for this). She has questions about Botox injections. This is certainly a direction we could take this although we would want to do a myofascial exam first to confirm active trigger points. She is concerned that it could take up to 9 months before achieving an adequate dose on Botox to relieve her symptoms. We could also consider an alternative CGRP inhibitor. She would like to go ahead with a trial of Nurtec as this has been helpful for her sister and she often responds to medications in a similar way (though her sister had tends to have more classic migraines which she also occasionally has about 5 times per year). She also has a follow-up with her histologist and will touch base with him about the possibility of trigger point injections for the migraine which had previously been deferred. I assured her that we can still consider Botox in the future she wishes -although we would want to confirm active trigger points on examination which we have avoided thus far so that we do not trigger a multi day migraine. BILLING: Discussion across issues of diagnoses and management and same day associated chart review and management greater than 50% greater than 30 minutes rosa m Not available 12/17/2022 17:10:52 01/06/2023 [id number] PREVIOUS MEDICAT IONS December 2019 repeat Nurtec trial: No clear benefit, no side effect November 2022 8-day Nurtec trial, excellent benefit (also concurrent trigger point injections), possible GI side effect and insomnia may be due to concurrent steroid injection. October 05 2022 Ajovy trial -no benefit in the first 23 days of the trial. No side effect (there is a possibility of inadequate delivery as someone came to the door during the delivery, did not hear the second click but no issues with seeing liquid on her skin) PREVIOUS DISCUSSIONS December 17, 2022: Seen today for Emgality trial with office teaching. We went over the instructions and I did one of the 2 loading dose autoinjectors and she did the other. She tolerated this well without any difficulty but she notes that it is a bit more painful than when she was giving herself injections for artificial insemination. We discussed the difference between the Ajovy autoinjector and the Emgality autoinjector and she believes that the difficulty that she had with it was the second half popping out and not receiving the full dose when she had the previous Ajovy trial. We will plan a 3-week follow-up as previously discussed yesterday, December 16, 2022, details below. December 16, 2022: She continues to have daily headaches that ramped up by late morning. There is less frequent migraine with aura about 2 times per month. She has had a second trial of Nurtec for 8 days at this time, no side effect but also no benefit. She is now wondering if the benefit that she had with the first trial was actually because of the trigger point injections she had from her histologist at the time. She has active trigger points on examination at the insertion of the cervical paraspinals as well as laterally toward the occipital groove and posterior auricular region. There is also an active trigger point at the right sternocleidomastoid radiating posteriorly toward the occiput and areas of tenderness at the occipital region at the back of the head. We discussed the possibility of starting with physical therapy for myofascial release. She is actually starting physical therapy for low back pain this afternoon. I believe this should be covered by insurance as it is a separate issue but would also be difficult for her to make it to physical therapy for both low back pain and for myofascial release but she would like a referral to begin making the arrangements to start the physical therapy for myofascial release after she completes her physical therapy for low back pain. We also discussed the possibility of setting up a follow-up with Dr. Bowman for further discussion of potential Botox as she will likely be in physical therapy at that time and has responded to trigger point injections from her histologist (but it did not last). She prefers to try medication again reflecting that when she first tried Ajovy, that the injection may not have gone in correctly. We discussed that there is a about a 20% possibility that someone might respond to a different CGRP inhibitor. We discussed the possibility of a trial of Emgality monthly autoinjector (she has baseline constipation and therefore we have not considered Aimovig) versus a trial of Qulipta at 30 mg and possibly 60 mg. She would like to return for trial of Emgality. Nov 25 2022 initial Nurtec trial: She has had significant reduction in the severity of migraine (though not the frequency of daily headaches) in the context of an 8 day trial of Nurtec and trigger point injections for low back from her histologist. This has also been a side effect of insomnia, GI upset and sensation of intense heartbeat or high blood pressure which she attributes to cortisone injection. I am not certain, particularly the GI upset. She is planning her last set of trigger point injections and cortisone injection in 2 days. She has been off of Nurtec for about 1 week at this point. I have asked her to remain off of it and have given her another 8-day trial to resume in 1 to 2 weeks after her trigger point and steroid injections so that we can determine if she is having side effect from the Nurtec before asking insurance for prior authorization. October 28, 2022: She is 23 days into a trial of Ajovy that may not have delivered entirely correctly but she believes that it did not. She has not had any benefit. She is also not had any side effect. She has a clear musculoskeletal component to her migraines and has discussed trigger point injections with her histologist although the focus has been primarily on low back pain. (She is about to start physical therapy for this). She has questions about Botox injections. This is certainly a direction we could take this although we would want to do a myofascial exam first to confirm active trigger points. She is concerned that it could take up to 9 months before achieving an adequate dose on Botox to relieve her symptoms. We could also consider an alternative CGRP inhibitor. She would like to go ahead with a trial of Nurtec as this has been helpful for her sister and she often responds to medications in a similar way (though her sister had tends to have more classic migraines which she also occasionally has about 5 times per year). She also has a follow-up with her histologist and will touch base with him about the possibility of trigger point injections for the migraine which had previously been deferred. I assured her that we can still consider Botox in the future she wishes -although we would want to confirm active trigger points on examination which we have avoided thus far so that we do not trigger a multi day migraine. BILLING: Discussion across issues of diagnoses and management and same day associated chart review and management greater than 50% greater than 40 minutes rosa m Not available 01/06/2023 13:53:35 01/14/2023 [id number] PREVIOUS MEDICAT IONS December 2019 repeat Nurtec trial: No clear benefit, no side effect November 2022 8-day Nurtec trial, excellent benefit (also concurrent trigger point injections), possible GI side effect and insomnia may be due to concurrent steroid injection. October 05 2022 Ajovy trial -no benefit in the first 23 days of the trial. No side effect (there is a possibility of inadequate delivery as someone came to the door during the delivery, did not hear the second click but no issues with seeing liquid on her skin) PREVIOUS DISCUSSIONS January 06, 2023: She has had benefit from Emgality without side effect. She wishes to continue. She has not had any breakthrough migraine with aura. She has had some headache associated with noise triggers and stressors she feels is more typical of the musculoskeletal component. She has tried sumatriptan for these in the past but it has not helped (25 mg dose.) She has previously had trial of Ajovy with insufficient benefit and trial of Nurtec with insufficient benefit. We will request prior authorization for emgality given her improvement with migraine with aura.. -Additionally, she has sumatriptan/Imitrex 25 mg from her primary care provider which has helped with aura in the past although it has not helped with the rest of her migraines. I offered to take it over and increase the dose. We will start with 50 mg as she can take half tablets if 25 mg continues to be sufficient. I have also told her she may double the dose with a maximum of 200 mg per 24 hours. She will consider a retrial for some of the headaches without aura to see if there is any benefit, possibly at higher dose than previously. She will contact me if she finds that she requires 100 mg doses December 17, 2022: Seen today for Emgality trial with office teaching. We went over the instructions and I did one of the 2 loading dose autoinjectors and she did the other. She tolerated this well without any difficulty but she notes that it is a bit more painful than when she was giving herself injections for artificial insemination. We discussed the difference between the Ajovy autoinjector and the Emgality autoinjector and she believes that the difficulty that she had with it was the second half popping out and not receiving the full dose when she had the previous Ajovy trial. We will plan a 3-week follow-up as previously discussed yesterday, December 16, 2022, details below. December 16, 2022: She continues to have daily headaches that ramped up by late morning. There is less frequent migraine with aura about 2 times per month. She has had a second trial of Nurtec for 8 days at this time, no side effect but also no benefit. She is now wondering if the benefit that she had with the first trial was actually because of the trigger point injections she had from her histologist at the time. She has active trigger points on examination at the insertion of the cervical paraspinals as well as laterally toward the occipital groove and posterior auricular region. There is also an active trigger point at the right sternocleidomastoid radiating posteriorly toward the occiput and areas of tenderness at the occipital region at the back of the head. We discussed the possibility of starting with physical therapy for myofascial release. She is actually starting physical therapy for low back pain this afternoon. I believe this should be covered by insurance as it is a separate issue but would also be difficult for her to make it to physical therapy for both low back pain and for myofascial release but she would like a referral to begin making the arrangements to start the physical therapy for myofascial release after she completes her physical therapy for low back pain. We also discussed the possibility of setting up a follow-up with Dr. Bowman for further discussion of potential Botox as she will likely be in physical therapy at that time and has responded to trigger point injections from her histologist (but it did not last). She prefers to try medication again reflecting that when she first tried Ajovy, that the injection may not have gone in correctly. We discussed that there is a about a 20% possibility that someone might respond to a different CGRP inhibitor. We discussed the possibility of a trial of Emgality monthly autoinjector (she has baseline constipation and therefore we have not considered Aimovig) versus a trial of Qulipta at 30 mg and possibly 60 mg. She would like to return for trial of Emgality. Nov 25 2022 initial Nurtec trial: She has had significant reduction in the severity of migraine (though not the frequency of daily headaches) in the context of an 8 day trial of Nurtec and trigger point injections for low back from her histologist. This has also been a side effect of insomnia, GI upset and sensation of intense heartbeat or high blood pressure which she attributes to cortisone injection. I am not certain, particularly the GI upset. She is planning her last set of trigger point injections and cortisone injection in 2 days. She has been off of Nurtec for about 1 week at this point. I have asked her to remain off of it and have given her another 8-day trial to resume in 1 to 2 weeks after her trigger point and steroid injections so that we can determine if she is having side effect from the Nurtec before asking insurance for prior authorization. October 28, 2022: She is 23 days into a trial of Ajovy that may not have delivered entirely correctly but she believes that it did not. She has not had any benefit. She is also not had any side effect. She has a clear musculoskeletal component to her migraines and has discussed trigger point injections with her histologist although the focus has been primarily on low back pain. (She is about to start physical therapy for this). She has questions about Botox injections. This is certainly a direction we could take this although we would want to do a myofascial exam first to confirm active trigger points. She is concerned that it could take up to 9 months before achieving an adequate dose on Botox to relieve her symptoms. We could also consider an alternative CGRP inhibitor. She would like to go ahead with a trial of Nurtec as this has been helpful for her sister and she often responds to medications in a similar way (though her sister had tends to have more classic migraines which she also occasionally has about 5 times per year). She also has a follow-up with her histologist and will touch base with him about the possibility of trigger point injections for the migraine which had previously been deferred. I assured her that we can still consider Botox in the future she wishes -although we would want to confirm active trigger points on examination which we have avoided thus far so that we do not trigger a multi day migraine. BILLING: Discussion across issues of diagnoses and management and same day associated chart review and management greater than 50% greater than 40 minutes rosa m Not available 01/14/2023 16:58:27 Reason for Referral For myofascial release. Acti ve trigger points at insertion of paraspinal, occipital groove, post auricular region. R scm radiates toward occiput. Also separate pain to touch b/l occipital region. (Has responded to ttp injections from physiatry. Would like to start after upcoming PT for low back Referring Physician: Yanelis Gonzalez, Neurology, Encounter Date: 12/16/2022 Procedures Surgical History Date Name Laterality Status Provider Name and Address Organization Details Recorded Time 01/14/2023 DATA REVIEW completed [facility], [place], [phone], [facility] 01/14/2023 15:21:24 01/06/2023 DATA REVIEW completed [facility], [place], [phone], [facility] 01/06/2023 09:12:34 12/17/2022 DATA REVIEW completed [facility], [place], [phone], [facility] 12/17/2022 16:23:59 12/16/2022 DATA REVIEW completed [facility], [place], [phone], [facility] 12/16/2022 09:10:13 11/25/2022 DATA REVIEW completed [facility], [place], [phone], [facility] 11/25/2022 09:10:21 10/28/2022 DATA REVIEW completed [facility], [place], [phone], [facility] 10/28/2022 18:40:26 10/01/2022 DATA REVIEW completed [facility], [place], [phone], [facility] 10/01/2022 13:16:10 Imaging Results None recorded. Procedure Notes None recorded. Medical Equipment None Reported. Allergies Allergen ID Allergen Name Allergen Category Reaction Reaction Severity Criticality Documentation Date Start Date Code Code System Note Provider Name and Address Organization Details Recorded Time 8464 Ceclor medicatio n Not available Not available Not available 10/01/202295719 5 RxNorm hives [facility], [place], [phone], [facility] 03/30/202 3 11:14:48 Medications Name Sig Start Date Stop Date Status Note LastModified by Organization Details LastModified Time venlafaxine ER 37.5 mg capsule,exte nded release 24 hr TAKE 1 CAPSULE BY MOUTH EVERY DAY active Not Available Not Available No t Available prednisone 10 mg tablet TAKE 3 TABLETS BY MOUTH EVERY DAY active Not Available Not Available No t Available tizanidine 2 mg tablet active Not Available Not Available No t Available sumatriptan 25 mg tablet TAKE 1 TABLET BY MOUTH DAILY NEEDED FOR MIGRAINE HEADACHE. MAY REPEAT DOSE AFTER 2 HOURS UP TO A. MAXIMUM OF 2 active Not Available Not Available No t Available sumatriptan 50 mg tablet 0.5 to 1.0 tablet by mouth at the beginning of headache headache, may repeat once after one hour, maximum 200 mg/day, 600mg/week active Not Available Not Available N ot Available topiramate 25 mg tablet PLEASE SEE ATTACHED FOR DETAILED DIRECTIONS active Not Available Not Available N ot Available lorazepam 0.5 mg tablet TAKE 1 TABLET BY MOUTH 2 TIMES A DAY,X7 DAYS, NEEDED FOR ANXIETY active Not Available Not Available No t Available benzonatate 100 mg capsule TAKE 1 CAPSULE BY MOUTH THREE TIMES DAILY FOR 7 DAYS NEEDED FOR COUGH active Not Available Not Available No t Available neomycin-zachary ymyxin-dexam eth 3.5 mg/mL-10,000 unit/mL-0.1% eye drops SHAKE LIQUID AND INSTILL 1 DROP IN LEFT EYE FOUR TIMES DAILY active Not Available Not Available No t Available hydroxyzine HCl 25 mg tablet TAKE 1 TABLET BY MOUTH EVERYDAY AT BEDTIME active Not Available Not Available No t Available albuterol sulfate HFA 90 mcg/actuatio n aerosol inhaler INHALE 2 PUFFS BY MOUTH EVERY 4 HOURS NEEDED FOR WHEEZING OR SHORTNESS OF BREATH active Not Available Not Available No t Available celecoxib 100 mg capsule TAKE 1 CAPSULE BY MOUTH TWICE DAILY active Not Available Not Available No t Available duloxetine 30 mg capsule,shoaib yed release START WITH 1 TAB DAILY FOR 1 WEEK THEN TAKE 1 TABLET BY MOUTH TWICE A DAY active Not Available Not Available No t Available pregabalin 25 mg capsule TAKE 1 CAPSULE BY MOUTH EVERY DAY active Not Available Not Available No t Available baclofen 5 mg tablet active Not Available Not Available No t Available Emgality Pen 120 mg/mL subcutaneous pen injector Inject 1 mL every month by subcutaneou s route. 2022 active Not Available Not Available Not Avai lable Vitals Date Recorded Body height Provider Name an d Address Organization Details Last Updated DateTime 01/14/2023 162.56 cm Yanelis Medina [facility] 01/14/2023 15:16:42 Social History Question Answer Notes LastModified by Organizat ion Details LastModified Time Tobacco Smoking Status Former Smoker Elizabeth kent [facility] 10/01/2022 10:51:51 What Is Your Level Of Alcohol Consumption? Moderate 1-2 Information not available 10/01/2022 What Is Your Level Of Caffeine Consumption? Moderate 1-2 Information not available 10/01/2022 What Is The Highest Grade Or Level Of School You Have Completed Or The Highest Degree You Have Received? [id number] Information not available 10/01/2022 Which Of Your Hands Is Dominant? Right Information not available 10/01/2022 What Is Your Relationship Status? Information not available 10/01/2022 Sex: Unknown Functional Status None recorded. Mental Status None recorded. Family History Relationship Description Onset Age of this Age Resolved Age Notes LastModified by Organization Details LastModified Time Mother Type 2 diabetes mellitus [email or web address] Not available 10:49:20 Mother Headache [email or web address] Not avail able 10/01/2022 10:50:00 Maternal Grandmother Type 2 diabetes mellitus [email or web address] Not available 10:49:36 Sister Headache [email or web address] Not avail able 10/01/2022 10:50:00 Medical History Condition Response Heartburn, acid reflux, GERD Y Vitamin D Deficiency Y Headaches Y Depression Y Gynecological HistoryNo gynecological history recorded. Obstetrics History GPAL:G 0 P 0 0 0 0 Past Encounters Encounter ID Performer Location Encounter Start Date Encounter Closed Date Diagnosis/Indication Diagnosis SNOMED-CT Code Diagnosis ICD10 Code Diagnosis Note [id number] YANELIS GONZALEZ PA-C [facility] [address] [place] [address] [place] [id number] 10/01/2022 10:33:04 10/13/2022 15:49:44 Migraine without aura 19043034 G43.009 [place] 09640214 G24.9 Migraine with aura 77950 06 G43.109 [id number] Nathan Bowman MD [facility] [address] [place] [address] Scott [place] [id number] 10/28/2022 08:58:59 11/05/2022 16:45:01 Migraine without aura 84972722 G43.009 [place] 64695107 G24.9 Migraine with aura 17290 06 G43.109 [id number] Nathan Bowman MD [facility] [address] [place] [address] [place] [id number] 11/25/2022 08:57:05 12/03/2022 16:20:23 Migraine without aura 93238232 G43.009 [place] 72362661 G24.9 Migraine with aura 67261 06 G43.109 [id number] Nathan Bowman MD [facility] [address] [place] [address] Scott [place]ANTHI [place]AN[place] [id number] 12/16/2022 09:00:40 12/24/2022 13:14:08 Migraine without aura 26044495 G43.009 Migraine with aura 03329 06 G43.109 [place] 55521472 G24.3 [id number] Nathan Bowman MD [facility] [address] [place] [address] [place] [address] 12/17/2022 16:10:48 12/24/2022 13:10:54 Migraine without aura 94221174 G43.009 Migraine with aura 40806 06 G43.109 [place] 77723384 G24.3 [id number] Nathan Bowman MD [facility] [address] [place] [address] [place] [id number] 01/06/2023 08:56:55 01/07/2023 08:21:41 Migraine without aura 50180156 G43.009 Migraine with aura 94459 06 G43.109 [place] 16163286 G24.3 [id number] YANELIS GONZALEZ PA-C [facility] [address] [place] [address] [place] [id number] 01/14/2023 15:16:11 01/18/2023 15:36:44 Migraine without aura 30396581 G43.009 Migraine with aura 22193 06 G43.109 [place] 09873172 G24.3 Health Concerns Section Related Observation LastModified by Organization Detai ls LastModified Time None Recorded Concern Status LastModified by Organization Details LastModified Time None Recorded Advance Directives Directive None Recorded Payers Encounter Date Sequence Insurance Name Policy Number Policy Farrar Covered Member ID Farrar Member ID Guarantor Name 11/25/2022 1 [employer] (PP[employer] 2PRU Sabiha Verla [id number] Sabiha Verla 12/16/2022 1 [employer] (PP[employer] 2PRU Sabiha Verla [id number] Sabiha Verla 12/17/2022 1 [employer] (PPO) [id number] Sabiha Verla [id number] Sabiha Verla 01/06/2023 1 [employer] (PPO) 2PRU Sabiha Verla [id number] Sabiha Verla 01/14/2023 1 [employer] (PPO) 2PRU Sabiha Verla [id number] Sabiha Verla Notes Date Note Type Note Provider Name and Address Organization Details Recorded Time 11/25/2022 text/html Follow up for evaluation of headaches. She was referred by her histologist, Dr. Esteban who had offered cervical trigger point injections, ultimately with the decision to hold off for now. She is unaccompanied. 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 Since October 28 2022 neurology follow-up, she had an 8-day trial of Nurtec beginning on November 12 that went really well. She denies any side effects although she has also been working with her histologist for trigger point injections in the neck and in the low back on the same day. There was cortisone in her low back and she is pretty sure that the side effects that she did experience was from the cortisone: Insomnia on the first night and stomach upset. She does have some bloating and gassy feeling in general and this occurred with a repeat injection as well. She does not get cortisone in the neck, only in the low back.Headaches have lessened. She has them every day but the intensity is less severe and since she stopped the Nurtec, the severity has worsened. Typically, when she has a headache she has to sleep it off but while she was on the Nurtec this was not necessary. Yesterday, off of the Nurtec, she had a severe migraine that was typical.She has not had any other changes. She will be repeating the trigger point injections in 2 days on Wednesday and then she will be finished with her course. She is 99% positive that her side effect is from the cortisone and it only occurs on the first night after the injections. She also had a feeling of intense heartbeat like a high blood pressure that night which she also feels is from the steroid and not the Nurtec. >>>>>>>>>>>>October 28 2022Since October 01, 2022 neurology consultation, she tried Ajovy at home but all of the liquid spilled out, she returned to the office on Wednesday the third and picked up a second sample. She thinks this 1 was done correctly but she is not entirely sure as somebody came to the door right at the moment that she was injecting it. It did not help at all. She did not have any side effect. She continues to get daily headaches that are at the top of her head with a tingling sensation and a lot of muscle tension and pressure in the occipital area. It is even to uncomfortable with light touch. Some days are a little bit worse but it is fairly constant. There is always stinging around the eyes. She mentions that since I asked her if it was worse during menses she has now noticed that it is. She is at the tail and now and headaches of been worse this week. October 01 2022 neurology consultation Eliza began having headaches in 2009 when she was in her late 20s. She was in school for massage therapy at the time and she began getting fatigue and all the headaches as well as generalized allover achiness. 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 (She has chronic pain involving the low back, shoulders, knees). The headaches would always peak after lunch. They worsened when she became about 4 years ago and were not alleviated by the of her daughter. In fact if anything, they have generally gotten worse. She is now getting headaches every day. They still tend to escalate after lunch but she often is awakening with them as well. There is quite a bit of pressure and pain behind both eyes. She was diagnosed with dry eye by her load test mechanic and actually had lacrimal duct plugs placed to assist in keeping the eyes moist. She is not sure if the dry eye might be contributing. She is having constant tinnitus in the right ear and when the headaches are more severe she has a whooshing sound that she can hear from her heart and feels that her heart is pounding a bit more. This is not constant.She has a separate type of headache with aura that she gets about 5 times per year. She is taking sumatriptan 25 mg from her primary care provider which she started last fall which has aborted the visual aura and subsequent headache. She has also tried it for one of the daily headaches and it has not helped. She also has some muscular neck pain as well. Decision was made to hold off on trigger point injections with her histologist last June 2022 in favor of seeing neurology for her headaches. Historically, she tried topiramate and had side effect of flulike symptoms with her stomach really bothering her, feeling gassy and very fatigued. She cannot really recall the exact dose but believes it was low. She was offered propranolol at some point but declined as she has low blood pressure at baseline, typically 100/70.She has a prior history of depression. She is not sure if this is completely controlled and wonders if she should see a psychiatrist, but in any event, she was on duloxetine and had attempted a trial of venlafaxine last March 2022 and she did not tolerate it. In fact, she was getting worsening headaches compared to the duloxetine. She was having some loud banging in her head and was feeling very anxious. Some of the symptoms also worsened as she went off of it. While the duloxetine that she is on is now possibly inadequate for the depression and some of the worsening headache symptoms on the venlafaxine trial have improved. I asked about increased stressors in particular and she notes that becoming a mother was stressful in and of itself and currently, there are health issues on both sides of her family. To try and thwart both the migraines and other body pains, she has tried baclofen, tizanidine and cyclobenzaprine, all of these, cyclobenzaprine is the only one that helped but only for a week. She has been on NSAIDs, diclofenac and piroxicam, primarily for the musculoskeletal pain. She has been on BPC 157 that she received from integrative medicine which is supposed to help for chronic pain but it does not assist for hers.She had a head CT at [facility] a few months ago that was negative. Past medical history of back pain, shoulder and knee pain. Her father was recently diagnosed with spondyloarthritis (HLA-B& positive per referral note). And she reports that she has tested negative. In addition, she says that she saw a machine strap buckler about a year ago and had a multiple laboratory tests that all came out negative. She believes they were done through the [facility] [employer]. She also has a history of appendectomy and had a current cystectomy of the left ovary at the time. She has a history of irritable bowel syndrome. There is a history of depression that she feels is not completely well controlled. She feels that she should see a psychiatrist. Additional family history notable for multiple sclerosis in both her grandmother who is now and her mother (who is living). Her sister has terrible migraines.She does not smoke or use recreational drugs, she drinks 1-2 drinks per day. 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 Nathan Bowman MD [address] [place] [address], [phone], [facility] 12/01/2022 18:38:03 12/16/2022 text/html Follow up for evaluation of headaches. She was referred by her histologist, Dr. Esteban who had offered cervical trigger point injections, ultimately with the decision to hold off for now. She is unaccompanied. 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 Since her November 25, 2022 neurology follow-up 3 weeks ago, she reports that her headaches are not any better. Today, she awoke with a back spasm but she is doing all right now. She has had her second 8-day trial of Nurtec for migraine prevention. She did not have any side effects at this time and she did not do it concurrent with a trigger point injection. Specifically, she did not have a GI affect or sleep disturbance which she had during the first day of the trial while she had concurrent steroid injection that she attributed to the steroids. However, she is now wondering if her improvement was actually from the trigger point injections rather than from the Nurtec since the second trial was not so effective. She has a number of spots on her head that are tender towards the back if she just touches them. Then, she does not have the typical radiating pain from the back of the head all the way to the eye but it shoots from the neck to the back of the occipital region. That area is where the tenderness is when she touches it. Her mother has occipital neuralgia and so she is wondering this might be the same sort of thing. She says that physiatry did trigger points at the neck and near the skull base which did help, especially the first time that she had it done. There is also an injection by the right sternocleidomastoid which almost aggravated the pain. She said there was some discussion of laser therapy but currently focusing on the back. There is not any discussion about Botox injections. She continues to have headaches every day with a similar tiny with its mild in the morning when she awakens and it ramps up by 11:00. She did have physical therapy about a year ago in [facility] for the neck which did help. 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 She is on Celebrex which is helping with the neck and shoulder pain and also with headaches to some extent. She occasionally gets migraine with aura about 1-2 times per month. Imitrex 25 mg helps without side effect.She reflects that we previously tried Ajovy which she tried at home but she says it was questionable if it all went in. >>>>>>>>>>>>Nov 25 2022Since October 28 2022 neurology follow-up, she had an 8-day trial of Nurtec beginning on November 12 that went really well. She denies any side effects although she has also been working with her histologist for trigger point injections in the neck and in the low back on the same day. There was cortisone in her low back and she is pretty sure that the side effects that she did experience was from the cortisone: Insomnia on the first night and stomach upset. She does have some bloating and gassy feeling in general and this occurred with a repeat injection as well. She does not get cortisone in the neck, only in the low back.Headaches have lessened. She has them every day but the intensity is less severe and since she stopped the Nurtec, the severity has worsened. Typically, when she has a headache she has to sleep it off but while she was on the Nurtec this was not necessary. Yesterday, off of the Nurtec, she had a severe migraine that was typical.She has not had any other changes. She will be repeating the trigger point injections in 2 days on Wednesday and then she will be finished with her course. She is 99% positive that her side effect is from the cortisone and it only occurs on the first night after the injections. She also had a feeling of intense heartbeat like a high blood pressure that night which she also feels is from the steroid and not the Nurtec. >>>>>>>>>>>>October 28 2022Since October 01, 2022 neurology consultation, she tried Ajovy at home but all of the liquid spilled out, she returned to the office on Wednesday the third and picked up a second sample. She thinks this 1 was done correctly but she is not entirely sure as somebody came to the door right at the moment that she was injecting it. It did not help at all. She did not have any side effect. She continues to get daily headaches that are at the top of her head with a tingling sensation and a lot of muscle tension and pressure in the occipital area. It is even to uncomfortable with light touch. Some days are a little bit worse but it is fairly constant. There is always stinging around the eyes. She mentions that since I asked her if it was worse during menses she has now noticed that it is. She is at the tail and now and headaches of been worse this week. October 01 2022 neurology consultation Eliza began having headaches in 2009 when she was in her late 20s. She was in school for massage therapy at the time and she began getting fatigue and all the headaches as well as generalized allover achiness. 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 (She has chronic pain involving the low back, shoulders, knees). The headaches would always peak after lunch. They worsened when she became about 4 years ago and were not alleviated by the of her daughter. In fact if anything, they have generally gotten worse. She is now getting headaches every day. They still tend to escalate after lunch but she often is awakening with them as well. There is quite a bit of pressure and pain behind both eyes. She was diagnosed with dry eye by her load test mechanic and actually had lacrimal duct plugs placed to assist in keeping the eyes moist. She is not sure if the dry eye might be contributing. She is having constant tinnitus in the right ear and when the headaches are more severe she has a whooshing sound that she can hear from her heart and feels that her heart is pounding a bit more. This is not constant.She has a separate type of headache with aura that she gets about 5 times per year. She is taking sumatriptan 25 mg from her primary care provider which she started last fall which has aborted the visual aura and subsequent headache. She has also tried it for one of the daily headaches and it has not helped. She also has some muscular neck pain as well. Decision was made to hold off on trigger point injections with her histologist last June 2022 in favor of seeing neurology for her headaches. Historically, she tried topiramate and had side effect of flulike symptoms with her stomach really bothering her, feeling gassy and very fatigued. She cannot really recall the exact dose but believes it was low. She was offered propranolol at some point but declined as she has low blood pressure at baseline, typically 100/70.She has a prior history of depression. She is not sure if this is completely controlled and wonders if she should see a psychiatrist, but in any event, she was on duloxetine and had attempted a trial of venlafaxine last March 2022 and she did not tolerate it. In fact, she was getting worsening headaches compared to the duloxetine. She was having some loud banging in her head and was feeling very anxious. Some of the symptoms also worsened as she went off of it. While the duloxetine that she is on is now possibly inadequate for the depression and some of the worsening headache symptoms on the venlafaxine trial have improved. I asked about increased stressors in particular and she notes that becoming a mother was stressful in and of itself and currently, there are health issues on both sides of her family. To try and thwart both the migraines and other body pains, she has tried baclofen, tizanidine and cyclobenzaprine, all of these, cyclobenzaprine is the only one that helped but only for a week. She has been on NSAIDs, diclofenac and piroxicam, primarily for the musculoskeletal pain. She has been on BPC 157 that she received from integrative medicine which is supposed to help for chronic pain but it does not assist for hers.She had a head CT at [facility] a few months ago that was negative. Past medical history of back pain, shoulder and knee pain. Her father was recently diagnosed with spondyloarthritis (HLA-B& positive per referral note). And she reports that she has tested negative. In addition, she says that she saw a machine strap buckler about a year ago and had a multiple laboratory tests that all came out negative. She believes they were done through the [facility] laboratories. She also has a history of appendectomy and had a current cystectomy of the left ovary at the time. She has a history of irritable bowel syndrome. There is a history of depression that she feels is not completely well controlled. She feels that she should see a psychiatrist. Additional family history notable for multiple sclerosis in both her grandmother who is now and her mother (who is living). Her sister has terrible migraines.She does not smoke or use recreational drugs, she drinks 1-2 drinks per day. 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 Nathan Bowman MD [address] [place] [address], [phone], [facility] 12/17/2022 11:17:46 12/17/2022 text/html Follow up for evaluation of headaches. She was referred by her histologist, Dr. Esteban who had offered cervical trigger point injections, ultimately with the decision to hold off for now. 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 She is accompanied by her 4-year-old daughter, Elizabeth Since she was last seen 1 day ago, December 16, 2022, she does not have any changes to report. She would like to go ahead with trial of Emgality. >>>>>>>>>December 16 2022Since her November 25, 2022 neurology follow-up 3 weeks ago, she reports that her headaches are not any better. Today, she awoke with a back spasm but she is doing all right now. She has had her second 8-day trial of Nurtec for migraine prevention. She did not have any side effects at this time and she did not do it concurrent with a trigger point injection. Specifically, she did not have a GI affect or sleep disturbance which she had during the first day of the trial while she had concurrent steroid injection that she attributed to the steroids. However, she is now wondering if her improvement was actually from the trigger point injections rather than from the Nurtec since the second trial was not so effective. She has a number of spots on her head that are tender towards the back if she just touches them. Then, she does not have the typical radiating pain from the back of the head all the way to the eye but it shoots from the neck to the back of the occipital region. That area is where the tenderness is when she touches it. Her mother has occipital neuralgia and so she is wondering this might be the same sort of thing. She says that physiatry did trigger points at the neck and near the skull base which did help, especially the first time that she had it done. There is also an injection by the right sternocleidomastoid which almost aggravated the pain. She said there was some discussion of laser therapy but currently focusing on the back. There is not any discussion about Botox injections. She continues to have headaches every day with a similar tiny with its mild in the morning when she awakens and it ramps up by 11:00. She did have physical therapy about a year ago in [facility] for the neck which did help. 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 She is on Celebrex which is helping with the neck and shoulder pain and also with headaches to some extent. She occasionally gets migraine with aura about 1-2 times per month. Imitrex 25 mg helps without side effect.She reflects that we previously tried Ajovy which she tried at home but she says it was questionable if it all went in. >>>>>>>>>>>>Nov 25 2022Since October 28 2022 neurology follow-up, she had an 8-day trial of Nurtec beginning on November 12 that went really well. She denies any side effects although she has also been working with her histologist for trigger point injections in the neck and in the low back on the same day. There was cortisone in her low back and she is pretty sure that the side effects that she did experience was from the cortisone: Insomnia on the first night and stomach upset. She does have some bloating and gassy feeling in general and this occurred with a repeat injection as well. She does not get cortisone in the neck, only in the low back.Headaches have lessened. She has them every day but the intensity is less severe and since she stopped the Nurtec, the severity has worsened. Typically, when she has a headache she has to sleep it off but while she was on the Nurtec this was not necessary. Yesterday, off of the Nurtec, she had a severe migraine that was typical.She has not had any other changes. She will be repeating the trigger point injections in 2 days on Wednesday and then she will be finished with her course. She is 99% positive that her side effect is from the cortisone and it only occurs on the first night after the injections. She also had a feeling of intense heartbeat like a high blood pressure that night which she also feels is from the steroid and not the Nurtec. >>>>>>>>>>>>October 28 2022Since October 01, 2022 neurology consultation, she tried Ajovy at home but all of the liquid spilled out, she returned to the office on Wednesday the third and picked up a second sample. She thinks this 1 was done correctly but she is not entirely sure as somebody came to the door right at the moment that she was injecting it. It did not help at all. She did not have any side effect. She continues to get daily headaches that are at the top of her head with a tingling sensation and a lot of muscle tension and pressure in the occipital area. It is even to uncomfortable with light touch. Some days are a little bit worse but it is fairly constant. There is always stinging around the eyes. She mentions that since I asked her if it was worse during menses she has now noticed that it is. She is at the tail and now and headaches of been worse this week. October 01 2022 neurology consultation Eliza began having headaches in 2009 when she was in her late 20s. She was in school for massage therapy at the time and she began getting fatigue and all the headaches as well as generalized allover achiness. 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 (She has chronic pain involving the low back, shoulders, knees). The headaches would always peak after lunch. They worsened when she became about 4 years ago and were not alleviated by the of her daughter. In fact if anything, they have generally gotten worse. She is now getting headaches every day. They still tend to escalate after lunch but she often is awakening with them as well. There is quite a bit of pressure and pain behind both eyes. She was diagnosed with dry eye by her load test mechanic and actually had lacrimal duct plugs placed to assist in keeping the eyes moist. She is not sure if the dry eye might be contributing. She is having constant tinnitus in the right ear and when the headaches are more severe she has a whooshing sound that she can hear from her heart and feels that her heart is pounding a bit more. This is not constant.She has a separate type of headache with aura that she gets about 5 times per year. She is taking sumatriptan 25 mg from her primary care provider which she started last fall which has aborted the visual aura and subsequent headache. She has also tried it for one of the daily headaches and it has not helped. She also has some muscular neck pain as well. Decision was made to hold off on trigger point injections with her histologist last June 2022 in favor of seeing neurology for her headaches. Historically, she tried topiramate and had side effect of flulike symptoms with her stomach really bothering her, feeling gassy and very fatigued. She cannot really recall the exact dose but believes it was low. She was offered propranolol at some point but declined as she has low blood pressure at baseline, typically 100/70.She has a prior history of depression. She is not sure if this is completely controlled and wonders if she should see a psychiatrist, but in any event, she was on duloxetine and had attempted a trial of venlafaxine last March 2022 and she did not tolerate it. In fact, she was getting worsening headaches compared to the duloxetine. She was having some loud banging in her head and was feeling very anxious. Some of the symptoms also worsened as she went off of it. While the duloxetine that she is on is now possibly inadequate for the depression and some of the worsening headache symptoms on the venlafaxine trial have improved. I asked about increased stressors in particular and she notes that becoming a mother was stressful in and of itself and currently, there are health issues on both sides of her family. To try and thwart both the migraines and other body pains, she has tried baclofen, tizanidine and cyclobenzaprine, all of these, cyclobenzaprine is the only one that helped but only for a week. She has been on NSAIDs, diclofenac and piroxicam, primarily for the musculoskeletal pain. She has been on BPC 157 that she received from integrative medicine which is supposed to help for chronic pain but it does not assist for hers.She had a head CT at [facility] a few months ago that was negative. Past medical history of back pain, shoulder and knee pain. Her father was recently diagnosed with spondyloarthritis (HLA-B& positive per referral note). And she reports that she has tested negative. In addition, she says that she saw a machine strap buckler about a year ago and had a multiple laboratory tests that all came out negative. She believes they were done through the [facility] laboratories. She also has a history of appendectomy and had a current cystectomy of the left ovary at the time. She has a history of irritable bowel syndrome. There is a history of depression that she feels is not completely well controlled. She feels that she should see a psychiatrist. Additional family history notable for multiple sclerosis in both her grandmother who is now and her mother (who is living). Her sister has terrible migraines.She does not smoke or use recreational drugs, she drinks 1-2 drinks per day. 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 Nathan Bowman MD [address] [place] [address] [place], [phone], [facility] 12/21/2022 10:21:43 01/06/2023 text/html Follow up for evaluation of headaches. She was referred by her histologist, Dr. Esteban who had offered cervical trigger point injections, ultimately with the decision to hold off for now. 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 She is accompanied by her 4-year-old daughter, Elizabeth Follow-up of Emgality loading dose on December 17, 2022Since December 17, 2022 neurology follow-up, though she has had quite a morning due to back pain and her had to drive her for today's appointment, she says that the medicine seems to be working and that the head is better. She has not had any migraines associated with aura. She has had some other types of headaches associated with her normal triggers from noise and that do not have concurrent aura. She has not had any side effects. She wishes to continue. >>>>>>>>>December 17 2022Since she was last seen 1 day ago, December 16, 2022, she does not have any changes to report. She would like to go ahead with trial of Emgality. >>>>>>>>>December 16 2022Since her November 25, 2022 neurology follow-up 3 weeks ago, she reports that her headaches are not any better. Today, she awoke with a back spasm but she is doing all right now. She has had her second 8-day trial of Nurtec for migraine prevention. She did not have any side effects at this time and she did not do it concurrent with a trigger point injection. Specifically, she did not have a GI affect or sleep disturbance which she had during the first day of the trial while she had concurrent steroid injection that she attributed to the steroids. However, she is now wondering if her improvement was actually from the trigger point injections rather than from the Nurtec since the second trial was not so effective. She has a number of spots on her head that are tender towards the back if she just touches them. Then, she does not have the typical radiating pain from the back of the head all the way to the eye but it shoots from the neck to the back of the occipital region. That area is where the tenderness is when she touches it. Her mother has occipital neuralgia and so she is wondering this might be the same sort of thing. She says that physiatry did trigger points at the neck and near the skull base which did help, especially the first time that she had it done. There is also an injection by the right sternocleidomastoid which almost aggravated the pain. She said there was some discussion of laser therapy but currently focusing on the back. There is not any discussion about Botox injections. She continues to have headaches every day with a similar tiny with its mild in the morning when she awakens and it ramps up by 11:00. She did have physical therapy about a year ago in [facility] for the neck which did help. 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 She is on Celebrex which is helping with the neck and shoulder pain and also with headaches to some extent. She occasionally gets migraine with aura about 1-2 times per month. Imitrex 25 mg helps without side effect.She reflects that we previously tried Ajovy which she tried at home but she says it was questionable if it all went in. >>>>>>>>>>>>Nov 25 2022Since October 28 2022 neurology follow-up, she had an 8-day trial of Nurtec beginning on November 12 that went really well. She denies any side effects although she has also been working with her histologist for trigger point injections in the neck and in the low back on the same day. There was cortisone in her low back and she is pretty sure that the side effects that she did experience was from the cortisone: Insomnia on the first night and stomach upset. She does have some bloating and gassy feeling in general and this occurred with a repeat injection as well. She does not get cortisone in the neck, only in the low back.Headaches have lessened. She has them every day but the intensity is less severe and since she stopped the Nurtec, the severity has worsened. Typically, when she has a headache she has to sleep it off but while she was on the Nurtec this was not necessary. Yesterday, off of the Nurtec, she had a severe migraine that was typical.She has not had any other changes. She will be repeating the trigger point injections in 2 days on Wednesday and then she will be finished with her course. She is 99% positive that her side effect is from the cortisone and it only occurs on the first night after the injections. She also had a feeling of intense heartbeat like a high blood pressure that night which she also feels is from the steroid and not the Nurtec. >>>>>>>>>>>>October 28 2022Since October 01, 2022 neurology consultation, she tried Ajovy at home but all of the liquid spilled out, she returned to the office on Wednesday the third and picked up a second sample. She thinks this 1 was done correctly but she is not entirely sure as somebody came to the door right at the moment that she was injecting it. It did not help at all. She did not have any side effect. She continues to get daily headaches that are at the top of her head with a tingling sensation and a lot of muscle tension and pressure in the occipital area. It is even to uncomfortable with light touch. Some days are a little bit worse but it is fairly constant. There is always stinging around the eyes. She mentions that since I asked her if it was worse during menses she has now noticed that it is. She is at the tail and now and headaches of been worse this week. October 01 2022 neurology consultation Eliza began having headaches in 2009 when she was in her late 20s. She was in school for massage therapy at the time and she began getting fatigue and all the headaches as well as generalized allover achiness. 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 (She has chronic pain involving the low back, shoulders, knees). The headaches would always peak after lunch. They worsened when she became about 4 years ago and were not alleviated by the of her daughter. In fact if anything, they have generally gotten worse. She is now getting headaches every day. They still tend to escalate after lunch but she often is awakening with them as well. There is quite a bit of pressure and pain behind both eyes. She was diagnosed with dry eye by her load test mechanic and actually had lacrimal duct plugs placed to assist in keeping the eyes moist. She is not sure if the dry eye might be contributing. She is having constant tinnitus in the right ear and when the headaches are more severe she has a whooshing sound that she can hear from her heart and feels that her heart is pounding a bit more. This is not constant.She has a separate type of headache with aura that she gets about 5 times per year. She is taking sumatriptan 25 mg from her primary care provider which she started last fall which has aborted the visual aura and subsequent headache. She has also tried it for one of the daily headaches and it has not helped. She also has some muscular neck pain as well. Decision was made to hold off on trigger point injections with her histologist last June 2022 in favor of seeing neurology for her headaches. Historically, she tried topiramate and had side effect of flulike symptoms with her stomach really bothering her, feeling gassy and very fatigued. She cannot really recall the exact dose but believes it was low. She was offered propranolol at some point but declined as she has low blood pressure at baseline, typically 100/70.She has a prior history of depression. She is not sure if this is completely controlled and wonders if she should see a psychiatrist, but in any event, she was on duloxetine and had attempted a trial of venlafaxine last March 2022 and she did not tolerate it. In fact, she was getting worsening headaches compared to the duloxetine. She was having some loud banging in her head and was feeling very anxious. Some of the symptoms also worsened as she went off of it. While the duloxetine that she is on is now possibly inadequate for the depression and some of the worsening headache symptoms on the venlafaxine trial have improved. I asked about increased stressors in particular and she notes that becoming a mother was stressful in and of itself and currently, there are health issues on both sides of her family. To try and thwart both the migraines and other body pains, she has tried baclofen, tizanidine and cyclobenzaprine, all of these, cyclobenzaprine is the only one that helped but only for a week. She has been on NSAIDs, diclofenac and piroxicam, primarily for the musculoskeletal pain. She has been on BPC 157 that she received from integrative medicine which is supposed to help for chronic pain but it does not assist for hers.She had a head CT at [facility] a few months ago that was negative. Past medical history of back pain, shoulder and knee pain. Her father was recently diagnosed with spondyloarthritis (HLA-B& positive per referral note). And she reports that she has tested negative. In addition, she says that she saw a machine strap buckler about a year ago and had a multiple laboratory tests that all came out negative. She believes they were done through the [facility] laboratories. She also has a history of appendectomy and had a current cystectomy of the left ovary at the time. She has a history of irritable bowel syndrome. There is a history of depression that she feels is not completely well controlled. She feels that she should see a psychiatrist. Additional family history notable for multiple sclerosis in both her grandmother who is now and her mother (who is living). Her sister has terrible migraines.She does not smoke or use recreational drugs, she drinks 1-2 drinks per day. 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 Nathan Bowman MD [address] [place] [address], [phone], [facility] 01/06/2023 14:53:45 01/14/2023 text/html Follow up for evaluation of headaches. She was referred by her histologist, Dr. Esteban who had offered cervical trigger point injections, ultimately with the decision to hold off for now. 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 She is accompanied by her 4-year-old daughter, Elizabeth As we were wrapping up her January 06, 2023 neurology follow-up 8 days ago with decision to move forward with Emgality prescription and request prior authorization, the prescription had a popup notification that the Emgality would cost $700 whereas Aimovig or Ajovy would cost about $30 per month. I told her that she could mushroom picker a sample of Aimovig 70 mg/mL if the Emgality today 01/14/2023 if it was denied (in favor of Aimovig or Ajovy). We had not selected it previously as she has irritable bowel syndrome at baseline. She was comfortable with moving forward with that as an alternative plan. (She previously tried Ajovy with insufficient benefit although it is possible she may not have received the entire injection). However, Emgality was denied lack of documentation of 15 headache days per month of which at least 8 must be migraine days for at least 3 months. (This is unclear to me as we have documented that she has daily migraine without aura and less frequent migraine with aura). Her criteria requires trial of 2 medications for at least 3 months with insufficient benefit contraindications/into lerance/not a candidate to 2 standard migraine preventatives: She came in to mushroom picker a sample of Aimovig today and as I had an opening in my schedule, she was able to stay for an appointment so that we could discuss the above, reviewed her history again and clarify the benefit that she has had from Emgality.We reviewed from her October 01, 2022 consultation, she previously tried topiramate from her primary care provider and had flulike symptoms. After that, her primary care tried venlafaxine which she was on for about 6 weeks but this worsened headache pain and increased frequency of migraine with aura as well as anxiety. She adds that she has previously tried muscle relaxers because of the significant neck involvement, in particular cyclobenzaprine and at least a couple of others which have not improved her headaches. Last week, she mentioned that she has not had any migraine with aura and headaches are improved. Went over the details. Specifically, she continues with a daily headache however severity has been reduced from 7/10 every day to 3 or 4/10 on the Emgality trial this month.Since I saw her 8 days ago, she did have a more severe headache -she had previously only tried sumatriptan 25 mg for migraine with aura which would take the oral way but not the headache. I took over the medication from primary care and increased it to 50 mg. She tried half a tablet and repeated it in an hour and had reduction of a headache without aura although it did not go away completely. She did not have any side effect. >>>>>>>>>January 06 2023:Follow-up of Emgality loading dose on December 17, 2022Since December 17, 2022 neurology follow-up, though she has had quite a morning due to back pain and her had to drive her for today's appointment, she says that the medicine seems to be working and that the head is better. She has not had any migraines associated with aura. She has had some other types of headaches associated with her normal triggers from noise and that do not have concurrent aura. She has not had any side effects. She wishes to continue. >>>>>>>>>December 17 2022Since she was last seen 1 day ago, December 16, 2022, she does not have any changes to report. She would like to go ahead with trial of Emgality. >>>>>>>>>December 16 2022Since her November 25, 2022 neurology follow-up 3 weeks ago, she reports that her headaches are not any better. Today, she awoke with a back spasm but she is doing all right now. She has had her second 8-day trial of Nurtec for migraine prevention. She did not have any side effects at this time and she did not do it concurrent with a trigger point injection. Specifically, she did not have a GI affect or sleep disturbance which she had during the first day of the trial while she had concurrent steroid injection that she attributed to the steroids. However, she is now wondering if her improvement was actually from the trigger point injections rather than from the Nurtec since the second trial was not so effective. She has a number of spots on her head that are tender towards the back if she just touches them. Then, she does not have the typical radiating pain from the back of the head all the way to the eye but it shoots from the neck to the back of the occipital region. That area is where the tenderness is when she touches it. Her mother has occipital neuralgia and so she is wondering this might be the same sort of thing. She says that physiatry did trigger points at the neck and near the skull base which did help, especially the first time that she had it done. There is also an injection by the right sternocleidomastoid which almost aggravated the pain. She said there was some discussion of laser therapy but currently focusing on the back. There is not any discussion about Botox injections. She continues to have headaches every day with a similar tiny with its mild in the morning when she awakens and it ramps up by 11:00. She did have physical therapy about a year ago in [facility] for the neck which did help. 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 She is on Celebrex which is helping with the neck and shoulder pain and also with headaches to some extent. She occasionally gets migraine with aura about 1-2 times per month. Imitrex 25 mg helps without side effect.She reflects that we previously tried Ajovy which she tried at home but she says it was questionable if it all went in. >>>>>>>>>>>>Nov 25 2022Since October 28 2022 neurology follow-up, she had an 8-day trial of Nurtec beginning on November 12 that went really well. She denies any side effects although she has also been working with her histologist for trigger point injections in the neck and in the low back on the same day. There was cortisone in her low back and she is pretty sure that the side effects that she did experience was from the cortisone: Insomnia on the first night and stomach upset. She does have some bloating and gassy feeling in general and this occurred with a repeat injection as well. She does not get cortisone in the neck, only in the low back.Headaches have lessened. She has them every day but the intensity is less severe and since she stopped the Nurtec, the severity has worsened. Typically, when she has a headache she has to sleep it off but while she was on the Nurtec this was not necessary. Yesterday, off of the Nurtec, she had a severe migraine that was typical.She has not had any other changes. She will be repeating the trigger point injections in 2 days on Wednesday and then she will be finished with her course. She is 99% positive that her side effect is from the cortisone and it only occurs on the first night after the injections. She also had a feeling of intense heartbeat like a high blood pressure that night which she also feels is from the steroid and not the Nurtec. >>>>>>>>>>>>October 28 2022Since October 01, 2022 neurology consultation, she tried Ajovy at home but all of the liquid spilled out, she returned to the office on Wednesday the third and picked up a second sample. She thinks this 1 was done correctly but she is not entirely sure as somebody came to the door right at the moment that she was injecting it. It did not help at all. She did not have any side effect. She continues to get daily headaches that are at the top of her head with a tingling sensation and a lot of muscle tension and pressure in the occipital area. It is even to uncomfortable with light touch. Some days are a little bit worse but it is fairly constant. There is always stinging around the eyes. She mentions that since I asked her if it was worse during menses she has now noticed that it is. She is at the tail and now and headaches of been worse this week. October 01 2022 neurology consultation Eliza began having headaches in 2009 when she was in her late 20s. She was in school for massage therapy at the time and she began getting fatigue and all the headaches as well as generalized allover achiness. 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 (She has chronic pain involving the low back, shoulders, knees). The headaches would always peak after lunch. They worsened when she became about 4 years ago and were not alleviated by the of her daughter. In fact if anything, they have generally gotten worse. She is now getting headaches every day. They still tend to escalate after lunch but she often is awakening with them as well. There is quite a bit of pressure and pain behind both eyes. She was diagnosed with dry eye by her load test mechanic and actually had lacrimal duct plugs placed to assist in keeping the eyes moist. She is not sure if the dry eye might be contributing. She is having constant tinnitus in the right ear and when the headaches are more severe she has a whooshing sound that she can hear from her heart and feels that her heart is pounding a bit more. This is not constant.She has a separate type of headache with aura that she gets about 5 times per year. She is taking sumatriptan 25 mg from her primary care provider which she started last fall which has aborted the visual aura and subsequent headache. She has also tried it for one of the daily headaches and it has not helped. She also has some muscular neck pain as well. Decision was made to hold off on trigger point injections with her histologist last June 2022 in favor of seeing neurology for her headaches. Historically, she tried topiramate and had side effect of flulike symptoms with her stomach really bothering her, feeling gassy and very fatigued. She cannot really recall the exact dose but believes it was low. She was offered propranolol at some point but declined as she has low blood pressure at baseline, typically 100/70.She has a prior history of depression. She is not sure if this is completely controlled and wonders if she should see a psychiatrist, but in any event, she was on duloxetine and had attempted a trial of venlafaxine last March 2022 and she did not tolerate it. In fact, she was getting worsening headaches compared to the duloxetine. She was having some loud banging in her head and was feeling very anxious. Some of the symptoms also worsened as she went off of it. While the duloxetine that she is on is now possibly inadequate for the depression and some of the worsening headache symptoms on the venlafaxine trial have improved. I asked about increased stressors in particular and she notes that becoming a mother was stressful in and of itself and currently, there are health issues on both sides of her family. To try and thwart both the migraines and other body pains, she has tried baclofen, tizanidine and cyclobenzaprine, all of these, cyclobenzaprine is the only one that helped but only for a week. She has been on NSAIDs, diclofenac and piroxicam, primarily for the musculoskeletal pain. She has been on BPC 157 that she received from integrative medicine which is supposed to help for chronic pain but it does not assist for hers.She had a head CT at [facility] a few months ago that was negative. Past medical history of back pain, shoulder and knee pain. Her father was recently diagnosed with spondyloarthritis (HLA-B& positive per referral note). And she reports that she has tested negative. In addition, she says that she saw a machine strap buckler about a year ago and had a multiple laboratory tests that all came out negative. She believes they were done through the [facility] laboratories. She also has a history of appendectomy and had a current cystectomy of the left ovary at the time. She has a history of irritable bowel syndrome. There is a history of depression that she feels is not completely well controlled. She feels that she should see a psychiatrist. Additional family history notable for multiple sclerosis in both her grandmother who is now and her mother (who is living). Her sister has terrible migraines.She does not smoke or use recreational drugs, she drinks 1-2 drinks per day. 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 YANELIS GONZALEZ PA-C [address] [place] [address] [place], [phone], [facility] 02/09/2023 08:27:42 OBGyn Episode No OBEpisode recorded.
--- OUTSIDE RECORDS SUMMARY | 2024-10-11 09:01 | XMS_ITS | Encounter Summary ---
Author Organization [facility] Address [address] [place] [id number] Care Team Providers Care Aviation Ordnance Officer Name Role Phone Yanelis Mast MD Primary Care Provider + Encounter Details Date Type Department Care Team (Late Contact Info) Description 08/18/2024 Scanned Document [facility] [address] [phone] [place] [address] Social History Tobacco Use Types Packs/Day Years [...] 11:20 AM EDT Procedure visit [facility] 65 [facility] [address] [place] [id number] Michelle Wasserman PA [address] [address] 01/11/2025 2:30 PM EDT [facility] [address] [phone] Sabiha Parkinson MD [address] [place] [address] documented as of this encounter Visit Diagnoses Not on filedocumented in this encounter Care Teams Aviation Ordnance Officer Relationship Specialty Start Date End Date Yanelis Mast MD [address] [address] PCP - General Family Medicine 07/06/23 documented as of this encounter
--- OUTSIDE RECORDS SUMMARY | 2024-10-11 09:01 | XMS_ITS | Encounter Summary ---
Author Organization [facility] Address [address] [place] [address] Care Team Providers Care Mopper Name Role Phone Yanelis Mast MD Primary Care Provider + Encounter Details Date Type Department Care Team (Late Contact Info) Description 08/03/2024 Scanned Document [facility] NEUROLOGY SCAN Neurology, Scan Social History Tobacco Use Types Packs/Day Years [...] Description 10/24/2024 11:20 AM EDT Procedure visit [facility] [place] [address] [phone] Michelle Wasserman PA [address] [address] 01/11/2025 2:30 PM EDT [facility] [address] [phone] Sabiha Parkinson MD [address] [place] [address] documented as of this encounter Visit Diagnoses Not on filedocumented in this encounter Care Teams Mopper Relationship Specialty Start Date End Date Yanelis Mast MD [place] [id number] [address] PCP - General Family Medicine 07/06/23 documented as of this encounter
--- OUTSIDE RECORDS SUMMARY | 2024-10-11 09:01 | XMS_ITS | Encounter Summary ---
Author Organization [facility] Address [address] [place] [address] Care Team Providers Care Business Services Sales Agent Name Role Phone Yanelis Mast MD Primary Care Provider + Encounter Details Date Type Department Care Team (Late Contact Info) Description 08/14/2024 Scanned Document [facility] NEUROLOGY SCAN Neurology, Scan Social History Tobacco [...] Description 10/24/2024 11:20 AM EDT Procedure visit [facility] [place] [address] [phone] Michelle Wasserman PA [address] [address] 01/11/2025 2:30 PM EDT [facility] [address] [phone] Sabiha Parkinson MD [address] [place] [address] documented as of this encounter Visit Diagnoses Not on filedocumented in this encounter Care Teams Business Services Sales Agent Relationship Specialty Start Date End Date Yanelis Mast MD [place] [id number] [address] [address] PCP - General Family Medicine 07/06/23 documented as of this encounter
--- OUTSIDE RECORDS SUMMARY | 2024-10-11 09:02 | XMS_ITS | Clinical Summary ---
Author Organization [facility] Address [address] [place] [id number] Care Team Providers Care Imaging Manager Name Role Phone Yanelis Mast MD Primary Care Provider + Allergies Active Allergy Reactions Criticality Noted Date Comments Cefaclor Unknown/Patient and Family Unable to Define Medium 10/21/2023 Medications Medication Sig Dispensed Refills Start Date End Date Status DULoxetine (CYMBALTA) 30 MG capsule Take 1 capsule (30 mg total) by mouth 2 times a day. 09/27/19 24 Active Biotin 3 MG Tab Take 1 tablet by mouth daily. Active cholecalciferol (CHOLECALCIFERO L) 25 MCG (1000 UT) tablet Take 4 tablets (4,000 Units total) by mouth daily. Active ibuprofen (MOTRIN) 400 MG tablet Take 1 tablet (400 mg total) by mouth 4 times daily (every 6 hours) as needed for mild pain. Active magnesium oxide 400 (240 Mg) MG Tab tablet Take 1 tablet (400 mg total) by mouth daily. Take 2 hours apart from other medications; take with food Active simethicone (MYLICON) 80 MG chewable tablet Chew 1 tablet (80 mg total) 4 times daily (every 6 hours) as needed for flatulence or gastrointestinal distress. Active norethindrone (MICRONOR) 0.35 MG tabletIndicatio ns:Menstrual migraine without status migrainosus, not intractable Take 1 tablet (0.35 mg total) by mouth daily. 84 tablet 3 09/22/19 25 Active ubrogepant (Ubrelvy) 100 MG tabletIndicatio ns:Intractable migraine with aura without status migrainosus Take 1 tablet (100 mg total) by mouth once as needed for migraine. May repeat in 2 hours if unresolved. Do not exceed 200 mg in 24 hours. 16 tablet 3 10/10/19 25 Active fremanezumab-vf rm (Ajovy) 225 MG/1.5ML injectionIndica tions:Intractab le migraine with aura without status migrainosus,Chr onic migraine without aura, intractable, without status migrainosus Inject 1.5 mL (225 mg total) under the skin every 28 days (4 weeks). 1.5 mL 3 10/10/19 25 Active pregabalin (LYRICA) 75 MG capsule Take 1 capsule (75 mg total) by mouth 2 times a day. 09/24/19 24 025 Discontinued( erapy completed) propranolol (INDERAL LA) 80 MG 24 hr capsule Take 1 capsule (80 mg total) by mouth daily. 10/12/19 24 025 Discontinued( erapy completed) Qulipta 30 MG tabletIndicatio ns:Chronic migraine without aura with status migrainosus, not intractable TAKE 1 TABLET(30 MG) BY MOUTH DAILY 30 tablet 2 03/16/20 24 025 Discontinued( erapy completed) triamcinolone (NASACORT AQ) 55 MCG/ACT Aerosol nasal spray into each nostril daily. 025 Discontinued( erapy completed) Drospirenone 4 MG TabIndications: Migraine with aura and without status migrainosus, not intractable Take 1 tablet by mouth daily. Do not take placebo pills, immediately start a new pack 84 tablet 3 04/20/20 24 025 Discontinued Fremanezumab-vf rm 225 MG/1.5ML Solution Auto-injectorIn dications:Chron ic migraine without aura with status migrainosus, not intractable Inject 225 mg under the skin every 28 days (4 weeks). 1.5 mL 5 05/04/20 24 025 Discontinued(Do se adjustment) Ubrelvy 100 MG tabletIndicatio ns:Intractable migraine with aura without status migrainosus TAKE 1 TABLET(100 MG) BY MOUTH 1 TIME NEEDED FOR MIGRAINE. MAY REPEAT 1 TABLET IN 2 HOURS NEEDED. MAX OF 2 TABLETS IN 24 HOURS 16 tablet 3 08/22/19 25 025 Discontinued(Re order) fremanezumab-vf rm (Ajovy) 225 MG/1.5ML injectionIndica tions:Intractab le migraine with aura without status migrainosus Inject 1.5 mL (225 mg total) under the skin every 28 days (4 weeks). 1.5 mL 3 10/10/19 25 025 Discontinued Active Problems No known active problems Encounters Date Type Department Care Team Description 10/09/2024 1:45 PM EDT Office Visit [address] [place] [address], [place] [phone] Josué Mitchell MD Chronic migraine without aura, intractable, without status migrainosus (Primary Dx); Intractable migraine with aura without status migrainosus; Menstrual migraine, with intractable migraine, so stated, with status migrainosus 10/09/2024 Travel 09/21/2024 3:00 PM EDT Telemedicine [facility] [address] [place] [phone] Sabiha Parkinson MD Menstrual migraine without status migrainosus, not intractable (Primary Dx) 08/29/[address] [place] [phone] Alaina Abbott MD 08/20/[address] [phone] Alaina Abbott MD Intractable migraine with aura without status migrainosus 08/18/2024 Scanned Document [address] [place] [phone] Alaina Abbott MD 08/14/2024 Scanned Document [facility] Neurology, Scan 08/03/2024 Scanned Document [facility] Neurology, Scan 08/01/2024 10:20 AM EST Procedure visit [address] [place] [phone] Alaina Abbott MD Chronic migraine without aura, intractable, without status migrainosus (Primary Dx) 08/01/2024 Travel from Last 3 Months Social History Tobacco Use Types Packs/Day Years [...] Orientation Bisexual 07/06/2023 2: 59 PM EST Last Filed Vital Signs Vital Sign Reading Time Taken Comments Blood Pressure 120/51 10/09/2024 1:57 PM EDT Pulse 60 10/09/2024 1:57 PM EDT Temperature 36.6 ??C (97.8 ??F) 08/01/2024 10:[address] Respiratory Rate 12 10/09/2024 1:57 PM EDT Oxygen Saturation 100% 10/09/2024 1:57 PM EDT Inhaled Oxygen Concentration - - Weight 60.8 kg (134 lb) 08/01/2024 10:10 AM EST Height 162.6 cm (5' 4 ) 08/01/2024 10:10 AM EST Body Mass Index 23 08/01/2024 10:10 AM EST Plan of Treatment Upcoming Encounters Date Type Department Care Team (Late st Contact Info) Description 10/24/2024 11:20 AM EDT Procedure visit [facility] [place] [address] [phone] Michelle Wasserman PA [address] [phone] 01/11/2025 2:30 PM EDT Telemedicine [facility] [address] [phone] Sabiha Parkinson MD [address] [place] [phone] Health Maintenance Due Date Last Done Comments Hepatitis C Virus Screening 1985 HIV Screening 1998 DTaP/Tdap/Td Vaccines (1 - Tdap) 01/10/2004 Hepatitis B Vaccines (1 of 3 - 19+ 3-dose series) 01/10/2004 Pap Smear (Ages 21-65) 2006 Influenza Vaccine 02/03/2024 03/23/2023, , 05/08/2022, Additional history exists COVID-19 Vaccine (2023- season) 2024 06/11/2021, 11/06/2020, 10/09/2020 HPV Vaccines Aged Out No longer eligi ble based on patient's age to complete this topic Pneumococcal Vaccine: Pediatric (0-5 Years) and At-Risk Patients (6 to 49 Years) Aged Out No longer eligible based on patient's age to complete this topic Care Teams Imaging Manager Relationship Specialty Start Date End Date Yanelis Mast MD [facility] [address] [place] [phone] PCP - General Family Medicine 07/06/23
== END 2024-10-11 10:20 | disposition home or self-care (01) ==
LOC: HO.HGI 08:43
PROVIDERS: PCP Family Medicine; Visit Provider Internal Medicine
DX: K58.1 Irritable bowel syndrome with constipation (principal)
CPT/HCPCS: 99204

== ENCOUNTER → 2024-10-11 08:43 | Outpatient (BNVA) | payer OTHER, SELFPAY | PROVIDERS: PCP Family Medicine; Visit Provider Internal Medicine ==

== ENCOUNTER 2025-06-13 11:31 | Outpatient (AMB) | payer OTHER, SELFPAY ==
--- NOTE | 2025-06-13 11:34 | A.OFFVIS_ITS ---
Vital Signs 06/13/25 11:35 Height 5 ft 4 in Weight 136 lb 10.986 oz BMI 23.5 BP 100/55 L Blood Pressure Location Lt brachial Position Sitting Pulse 77 Intake Visit Reasons: f/u IBS Intake Note: Sabiha presents in the office as a follow up for IBS. CC: States that she wants to talk about a possible SIBO test - mm had tested pos in the past. She also feels like she has slow moving bowels. Head Of Loss Prevention Required: No Allergies cefaclor (From Ceclor) Adverse Reaction (Unknown, Verified 06/13/25 11:35) Unknown HPI Comments Details: 39 y.o F with PMH of chronic migraines, LBP, IBS. Prev established with [facility] [place] but has not been seen by them since 2016. Main concern is if she is due for repeat colonoscopy due to fam hx. Fam hx: Maternal great grandmother and maternal aunt: CRC. No issues with diarrhea, blood in stool. Has IBS-C predominantly. Triggered easily by change in diet and/or routine. Tried fodmap diet but didnt agree with her gut. Takes at least a few weeks before she can regulate her BMs. When she is not having a flare, doesnt have to strain, stools are soft but formed. Doesn't take fiber supplementation but diet has decent amount fiber. 06/13/25: here for follow-up visit for management of Irritable Bowel Syndrome (IBS) symptoms, primarily constipation and bloating. Since her last visit, she has increased her protein intake and started strength training, reporting subsequent improvements in energy and stomach discomfort as well stool frequency. She continues to experience bloating, particularly after eating. Wonders if has a slow stomach . For self-management, she uses Gas-X daily for bloating, takes a probiotic, and supplements with Benefiber powder. She has previously tried eliminating dairy with no effect, and notes a slight, though not remarkable, improvement in symptoms with increased fiber intake. She recently decreased her sugar consumption and has noticed a positive difference, although she notes this is confounded by other recent lifestyle changes .--- Pt was informed and consented to the use of ambient scribe for this encounter. --- PFSH Medical History Depression Osteoarthritis Surgical History Hx of colonoscopy History of esophagogastroduodenoscopy (EGD) Family History Family/Other Colon cancer Family/Other Colon cancer Social History Patient Tobacco Use Status: Never used Tobacco Review of Systems Const All systems reviewed & are unremarkable except as noted in HPI and below Physical Exam Vital Signs: Last Vital Signs Pulse 77 06/13/25 11:35 BP 100/55 L 06/13/25 11:35 BMI result Body Mass Index 23.5 Assessment & Plan Assessment & Plan (1) Irritable bowel syndrome with constipation: Code(s): K58.1 - Irritable bowel syndrome with constipation Category: Medical Plan Assessment and Plan 1. Irritable Bowel Syndrome with constipation (IBS-C) The patient presents for follow-up of her IBS-C, characterized by persistent constipation and bloating despite dietary changes, increased exercise, and fiber supplementation. Pt had questions re SIBO and gastroparesis however at this time based on sx these appear less likely. Reviewed that global sx of nausea and post prandial bl oating int he setting of constipation do suggest IBS-C and would strongly recomemend secretagogue. This may in turn decrease reliance on meds like gas-X for symptomatic management. Plan: - Initiate Amitiza 8 mcg to address global IBS symptoms. - She was educated to start with one pill daily for one week, then titrate up to twice daily to mitigate any side effects and help with tolerance. - patient education handout was provided. - She is to continue her current lifestyle modifications, including fiber supplementation. - Follow-up is scheduled in two months to assess treatment efficacy. Medications: New lubiprostone (Amitiza) Take once daily with food x 1 week and then increase to twice a day. 8 mcg PO BID 60 caps 1RF 30 days Coding Level of Care Code Est Pt Level 3 (63632) Diagnoses Irritable bowel syndrome with constipation K58.1
[2025-06-13 11:35] VITALS: BP 100/55; PULSE 77; BMI 23.5
== END 2025-06-13 12:42 | disposition home or self-care (01) ==
LOC: HO.HGI 11:32
PROVIDERS: PCP Family Medicine; Visit Provider Internal Medicine
DX: K58.1 Irritable bowel syndrome with constipation (principal)
CPT/HCPCS: 99213